=== PATIENT | male | born 1985 | race African-American/Black ===

== ENCOUNTER 2017-06-16 20:27 | Emergency (ER) | payer SELFPAY ==
[2017-06-16 21:18] LABS: #Basophils 0.1 thou/uL (0.0-0.2); #Eosinphils 0.1 thou/uL (0.0-0.7); #Lymphocytes 1.6 thou/uL (1.20-3.40); #Monocytes 1.5 thou/uL (0.11-0.59); #Neutrophils 7.1 thou/uL (1.40-6.50); %Basophils 0.9 % (0.0-1.0); %Eosinophils 0.6 % (0.0-10.0); %Lymphocytes 15.9 % (21.0-51.0); Hematocrit 37.1 % (42.0-52.0); Mean Platelet Volume 6.1 fL (7.4-10.4); Red Blood Cell (RBC) Count 3.62 mill/uL (4.70-6.10); White Blood Cell (WBC) Count 10.3 thou/uL (4.8-10.8)
[2017-06-16] MEDS ORDERED: Lorazepam 2 MG/ML VIAL ONE (21:33)
[2017-06-16 21:37] LABS: Anion Gap 19 mmol/L (10-20); BUN (Urea Nitrogen) 4 mg/dL (8.9-20.6); Calc. Creatinine Clearance 0 mL/min (70-130); Calcium 9.9 mg/dL (7.8-10.44); Carbon Dioxide 23 mmol/L (22-29); Chloride 101 mmol/L (98-107); Estimated GFR-MDRD Greater than 90
[2017-06-16 22:27] LABS: Bilirubin Negative (Negative); Blood, Urine Negative (Negative); Glucose, Urine (Dipstick) Negative (Negative); Ketone, Urine Negative (Negative); Nitrite Negative (Negative); Protein, Urine (Dipstick) Negative (Neg-Trace); Urobilinogen 0.2 mg/dL (0.2-1.0)
[2017-06-16 22:28] LABS: Amphetamine Not Detected (NotDetected); Methadone Not Detected (NotDetected); Methamphetamine Not Detected (NotDetected)
== END 2017-06-16 23:22 | disposition home or self-care (01) ==
LOC: ERS 20:27
DX: F10.129 Alcohol abuse with intoxication, unspecified (principal); F41.9 Anxiety disorder, unspecified; L02.511 Cutaneous abscess of right hand; I10 Essential (primary) hypertension
CPT/HCPCS: 36415; 80048; 80306; 80307; 81003; 85025; 96361; 96374; J2060

== ENCOUNTER 2017-07-18 01:59 | Observation (INO) | payer SELFPAY ==
[2017-07-18 03:02] LABS: #Basophils 0.1 thou/uL (0.0-0.2); #Eosinphils 0.1 thou/uL (0.0-0.7); #Lymphocytes 2.1 thou/uL (1.20-3.40); #Monocytes 0.6 thou/uL (0.11-0.59); #Neutrophils 3.1 thou/uL (1.40-6.50); %Basophils 1.1 % (0.0-1.0); %Eosinophils 1.4 % (0.0-10.0); %Neutrophils 52.6 % (42.0-75.0); Hemoglobin 13.9 g/dL (14.0-18.0); Mean Corpuscular HGB CONC 34.5 g/dL (32.0-36.0); Mean Corpuscular Hemoglobin 34.9 pg (27.0-31.0); Mean Platelet Volume 6.5 fL (7.4-10.4); Platelet Count 200 thou/uL (130-400); RBC Distribution Width 12.3 % (11.5-14.5); Red Blood Cell (RBC) Count 3.99 mill/uL (4.70-6.10)
[2017-07-18 03:08] LABS: INR-International Normal Ratio 1.3; PTT 30.4 SEC (22.9-36.1); Prothrombin Time 16.2 SEC (12.0-14.7)
[2017-07-18 03:16] LABS: Acetaminophen Less than 6.0 mcg/mL (10.0-30.0); Alcohol 367 mg/dL (Less than 10); Salicylate Less than 8.0 mg/dL (15.0-30.0)
[2017-07-18 03:18] LABS: ALT (SGPT) 45 U/L (8-55); AST (SGOT) 93 U/L (5-34); Albumin 5.1 g/dL (3.5-5.0); Alkaline Phosphatase 113 U/L (40-150); Anion Gap 18 mmol/L (10-20); BUN (Urea Nitrogen) 4 mg/dL (8.9-20.6); Bilirubin, Total 1.6 mg/dL (0.2-1.2); CK (CPK) 115 U/L (30-200); Calc. Creatinine Clearance 0 mL/min (70-130); Calcium 9.6 mg/dL (7.8-10.44); Carbon Dioxide 24 mmol/L (22-29); Chloride 99 mmol/L (98-107); Estimated GFR-MDRD Greater than 90; Globulin 2.6 g/dL (2.4-3.5); Glucose 150 mg/dL (70-105); Lipase 73 U/L (8-78); Magnesium 2.4 mg/dL (1.6-2.6); Potassium 3.6 mmol/L (3.5-5.1); Protein, Total 7.7 g/dL (6.0-8.3); Sodium 137 mmol/L (136-145)
[2017-07-18 03:25] LABS: Amphetamine Not Detected (NotDetected); Barbiturates Screen Not Detected (NotDetected); Benzodiazepine Screen Not Detected (NotDetected); Cocaine Metabolite Screen Not Detected (NotDetected); Medtox Control Line Valid? VALID (VALID); Medtox Reader # READER 1; Methadone Not Detected (NotDetected); Methamphetamine Not Detected (NotDetected); Opiate Screen Not Detected (NotDetected); Oxycodone Screen Not Detected (NotDetected); Phencyclidine (PCP) Not Detected (NotDetected); THC/Cannabinoid Screen Not Detected (NotDetected); Tricyclic Screen Not Detected (NotDetected)
--- NOTE | 2017-07-18 07:42 | CT ---
PRELIMINARY REPORT/[facility]/EMERGENCY AFTER HOURS PROCEDURE: EXAM: CT Head Without Intravenous Contrast CLINICAL HISTORY: 31 years old, male; Signs and symptoms; Other: Anxious TECHNIQUE: Axial computed tomography images of the head/brain without intravenous contrast. COMPARISON: No relevant prior studies available. FINDINGS: Brain: Mild volume loss No hemorrhage. No significant white matter disease. No edema. Ventricles: Unremarkable. No ventriculomegaly. Bones/joints: Unremarkable. No acute fracture. Soft tissues: Unremarkable. Sinuses: Unremarkable as visualized. No acute sinusitis. Mastoid air cells: Unremarkable as visualized. No mastoid effusion. IMPRESSION: No intracranial hemorrhage.Please see discussion above. Thank you for allowing us to participate in the care of your patient. Dictated and Authenticated by: Sergio Castro MD 07/18/2017 5:07 AM Central Time ([place]) FINAL REPORT BY DR. CASTELLANOS EMERGENCY AFTER HOURS STUDY CT BRAIN NONCONTRAST: HISTORY: 31-year-old male with altered mental status, nausea, and emesis. FINDINGS: There is no midline shift or any other mass effect. There is no evidence of acute intracranial hemor rhage, large cortical infarct, obstructive hydrocephalus, or extraaxial fluid collection. The calvar ium is intact. There is diffuse brain parenchymal volume loss. This report agrees with the preliminary report by Kassandra. IMPRESSION: 1) No acute intracranial findings. 2) Involutional changes of the brain, abnormal in this age group. ranjana [] POS: [facility]
[2017-07-18 07:43] VITALS: BMI 21.4
[2017-07-18] MEDS ORDERED: Sodium Chloride 0.9% 1,000 ML IV SCH (07:55)
[2017-07-18] MEDS ORDERED: Ondansetron ODT 4 MG TAB SL PRN (07:55)
[2017-07-18] MEDS ORDERED: Acetaminophen 325 MG TAB PO PRN (07:55)
[2017-07-18] MEDS ORDERED: Ondansetron HCl/PF 4 MG/2 ML Vial IVP PRN (07:55)
[2017-07-18] MEDS ORDERED: chlordiazePOXIDE HCl 25 MG CAP PO PRN (07:58)
--- NOTE | 2017-07-18 09:01 | RAD ---
CHEST 1 VIEW: HISTORY: Altered mental status. COMPARISON: None. FINDINGS: Portable upright chest demonstrates normal cardiac silhouette. Pulmonary vessels and hilum are yecenia l. No mass. No consolidation. No pneumothorax or osseous abnormalities. IMPRESSION: No acute cardiopulmonary process. POS: [facility]
[2017-07-18] MEDS ORDERED: Folic Acid 1 MG TAB PO SCH (12:00)
--- NOTE | 2017-07-18 13:28 | HP ---
REASON FOR ADMISSION: Alcohol intoxication. HISTORY OF PRESENT ILLNESS: The patient came to ER with complaints of anxiety and not being able to eat or drink. He was also found to have had alcohol levels of 367 mg per deciliter. The patient is known to drink 10-12, 16-ounce beers on a daily basis. Currently, he has no complaints of chest pain, palpitation, PND or orthopnea. He is fully awake and alert this morning. He will shortly have his breakfast. He is moving all extremities and has ambulated to the restroom in his room in 242 on the observation unit. PAST MEDICAL AND SURGICAL HISTORY: History of alcohol abuse and hypertension. CURRENT MEDICATIONS: Toprol-XL 25 mg daily. ALLERGIES: No known drug allergies. PERSONAL HISTORY: Drinks 10-12, 16-ounce cans of beer on a daily basis. Does not abuse drugs or smoke. He sometimes stays with his girlfriend. He has three children, aged 6, 8, and 12 years. He is currently unemployed. FAMILY HISTORY: Mother is healthy as far as he knows. He does not know much about his father. REVIEW OF SYSTEMS: The following complete review of systems was negative, unless otherwise mentioned in the HPI or below: Constitutional: Weight loss or gain, ability to conduct usual activities. Skin: Rash, itching. Eyes: Double vision, pain. ENT/Mouth: Nose bleeding, neck stiffness, pain, tenderness. Cardiovascular: Palpitations, dyspnea on exertion, orthopnea. Respiratory: Shortness of breath, wheezing, cough, hemoptysis, fever or night sweats. Gastrointestinal: Poor appetite, abdominal pain, heartburn, nausea, vomiting, constipation, or diarrhea. Genitourinary: Urgency, frequency, dysuria, nocturia. Musculoskeletal: Pain, swelling. Neurologic/Psychiatric: Anxiety, depression. Allergy/Immunologic: Skin rash, bleeding tendency. PHYSICAL EXAMINATION: GENERAL: The patient is a 31-year-old male who is currently not in any acute distress. VITAL SIGNS: Blood pressure 106/66, pulse 90 per minute, respiratory rate 18 per minute, temperature 97.9 degrees Fahrenheit, saturating 98% on room air. NECK: Supple, no elevated JVD. HEENT: Eyes: Extraocular muscles intact. Pupils reacting to light. Oral cavity: Mucous membranes are moist. No exudates or congestion. CARDIOVASCULAR: S1, S2 heard. Regular rhythm. RESPIRATORY: Air entry 2+ bilateral. No rales or rhonchi. ABDOMEN: Soft, bowel sounds heard. No tenderness, rigidity or guarding. EXTREMITIES: No peripheral edema or calf tenderness. VASCULAR SYSTEM: Peripheral pulses 1+ bilateral. No ischemic ulcerations or gangrene. CENTRAL NERVOUS SYSTEM: No gross focal deficits seen. The patient is currently oriented well. PSYCHIATRIC: The patient's mood is euthymic. No hallucinations or delusions. LABORATORY: White count 6, H&H 13 and 40, platelet count 200, MCV is 101 with 52% neutrophils. INR is 1.3, BUN 4, creatinine 0.6, total bilirubin 1.6, AST 93 , ALT 45, alkaline phosphatase 113. Ammonia levels was 111, albumin is 5.1. Lipase is 73. Plasma alcohol levels were 367 mg per deciliter. Urine drug screen was negative. EKG done shows normal sinus rhythm at [address] brain shows no acute intracranial abnormalities. Chest x-ray, no acute cardiopulmonary abnormalities. CLINICAL IMPRESSION AND PLAN: The patient will be shortly discharged home. He was essentially monitored under observation for alcohol intoxication. His initial serum alcohol levels were 367 mg per deciliter with history of alcohol abuse. He was counseled with regards to cessation of drinking alcohol. The patient is contemplating about stopping it. His current girlfriend of 8 months has insurance and will try to bring him onto her insurance and will try to put him in rehab for the same. He was counseled to get active in community and might find a job as well, so he can keep his mind off alcohol. He is hemodynamically stable. Neurologically, he is intact. His alcoholic intoxication phase is slowly weaning off. After his current IV fluids gets over , he can be discharged home. Please note, this is a same day admit and discharge under observation. TURNER
[2017-07-18 15:41] VITALS: BP 134/92; TEMP 99
[2017-07-19] MEDS ORDERED: Folic Acid 1 MG TAB PO SCH (09:00)
--- NOTE | 2017-07-20 17:50 | EKG ---
Test Reason : Blood Pressure : / mmHG Vent. Rate : 095 BPM Atrial Rate : 095 BPM P-R Int : 196 ms QRS Dur : 088 ms QT Int : 374 ms P-R-T Axes : 048 013 020 degrees QTc Int : 469 ms Normal sinus rhythm Normal ECG Confirmed by MARYJANE RICKS D.O. ([id number]), graphics editor RENZO LOVETT ([id number]) on 07/20/2017 5:48:23 PM Referred By: Confirmed By:MARYJANE RICKS D.O.
== END 2017-07-18 16:31 | disposition home or self-care (01) ==
LOC: ERS 01:59 → 2SW 06:05
PROVIDERS: ADMIT Internal Medicine Infectious Disease; ATTEND Internal Medicine Infectious Disease
DX: F10.129 Alcohol abuse with intoxication, unspecified (principal); F41.9 Anxiety disorder, unspecified; I10 Essential (primary) hypertension; Z79.899 Other long term (current) drug therapy; Y90.8 Blood alcohol level of 240 mg/100 ml or more
CPT/HCPCS: 70450; 71045; 80053; 80306; 80307; 82140; 82550; 83690; 83735; 85025; 85610; 85730; 93005; 96360; 96361; G0378; Q0162

== ENCOUNTER 2018-03-12 10:51 | Emergency (ER) | payer SELFPAY ==
[2018-03-12 11:35] LABS: #Basophils 0.1 thou/uL (0.0-0.2); #Eosinphils 0.1 thou/uL (0.0-0.7); #Monocytes 0.6 thou/uL (0.11-0.59); #Neutrophils 6.1 thou/uL (1.40-6.50); %Basophils 0.8 % (0.0-1.0); %Eosinophils 0.8 % (0.0-10.0); %Lymphocytes 22.4 % (21.0-51.0); %Monocytes 7.1 % (0.0-10.0); %Neutrophils 68.9 % (42.0-75.0); Hemoglobin 15.5 g/dL (14.0-18.0); Mean Corpuscular HGB CONC 33.7 g/dL (32.0-36.0); Mean Corpuscular Volume 97.8 fL (78.0-98.0); Mean Platelet Volume 6.2 fL (7.4-10.4); Platelet Count 366 thou/uL (130-400); RBC Distribution Width 12.1 % (11.5-14.5); Red Blood Cell (RBC) Count 4.69 mill/uL (4.70-6.10); White Blood Cell (WBC) Count 8.9 thou/uL (4.8-10.8)
[2018-03-12 11:56] LABS: ALT (SGPT) 45 U/L (8-55); AST (SGOT) 83 U/L (5-34); Albumin 4.4 g/dL (3.5-5.0); Alcohol 246 mg/dL (Less than 10); Alkaline Phosphatase 107 U/L (40-150); Anion Gap 17 mmol/L (10-20); BUN (Urea Nitrogen) 5 mg/dL (8.9-20.6); Bilirubin, Total 1.9 mg/dL (0.2-1.2); CK (CPK) 115 U/L (30-200); Calc. Creatinine Clearance 0 mL/min (70-130); Calcium 9.2 mg/dL (7.8-10.44); Carbon Dioxide 21 mmol/L (22-29); Chloride 97 mmol/L (98-107); Estimated GFR-MDRD Greater than 90; Globulin 2.7 g/dL (2.4-3.5); Glucose 120 mg/dL (70-105); Lipase 35 U/L (8-78); Potassium 4.3 mmol/L (3.5-5.1); Protein, Total 7.1 g/dL (6.0-8.3); Sodium 131 mmol/L (136-145)
[2018-03-12 12:01] LABS: Bilirubin Negative (Negative); Blood, Urine Negative (Negative); Clarity CLEAR (Clear); Glucose, Urine (Dipstick) Negative (Negative); Leukocyte Negative (Negative); Nitrite Negative (Negative); Protein, Urine (Dipstick) Negative (Neg-Trace); Specific Gravity, Urine 1.002 (1.002-1.036); Urobilinogen 0.2 mg/dL (0.2-1.0); pH, Urine 6.5 (5.0-9.0)
[2018-03-12] MEDS ORDERED: Mag-Al 1200 mg/1200 mg/30 ML UDCUP ONE (12:06)
[2018-03-12] MEDS ORDERED: Lidocaine Viscous Sol 2% 15 ml UD Cup ONE (12:06)
[2018-03-12 13:18] LABS: Amphetamine Not Detected (NotDetected); Barbiturates Screen Not Detected (NotDetected); Benzodiazepine Screen Not Detected (NotDetected); Cocaine Metabolite Screen Not Detected (NotDetected); Medtox Control Line Valid? VALID (VALID); Medtox Reader # READER 1; Methadone Not Detected (NotDetected); Methamphetamine Not Detected (NotDetected); Opiate Screen Not Detected (NotDetected); Oxycodone Screen Not Detected (NotDetected); Phencyclidine (PCP) Not Detected (NotDetected); THC/Cannabinoid Screen Not Detected (NotDetected); Tricyclic Screen Not Detected (NotDetected)
[2018-03-12] MEDS ORDERED: Lorazepam 2 MG/ML VIAL ONE ×2 (17:53→22:59)
[2018-03-13] MEDS ORDERED: traZODone HCl 50 MG TAB PO PRN (01:19)
[2018-03-13] MEDS ORDERED: chlordiazePOXIDE HCl 25 MG CAP PO SCH (07:00)
[2018-03-13] MEDS ORDERED: chlordiazePOXIDE HCl 25 MG CAP ONE (08:45)
== END 2018-03-12 14:35 | disposition home or self-care (01) ==
LOC: ERS 10:51
DX: R45.851 Suicidal ideations (principal); R44.0 Auditory hallucinations; F10.239 Alcohol dependence with withdrawal, unspecified; I10 Essential (primary) hypertension
CPT/HCPCS: 36415; 80053; 80306; 80307; 81003; 82550; 83690; 84443; 85025; 96361; 96374; 96376; J2060

== ENCOUNTER 2018-09-17 22:45 | Day surgery (SDC) | payer SELFPAY ==
[2018-09-17] MEDS ORDERED: Adacel (T-DAP) 0.5 ML SYRINGE ONE (22:54)
[2018-09-17] MEDS ORDERED: Ondansetron PF 4 MG/2 ML Vial ONE (23:04)
[2018-09-17] MEDS ORDERED: Fentanyl 100 MCG/2 ML VIAL ONE ×2 (23:04→23:19)
[2018-09-17 23:11] LABS: #Basophils 0.1 thou/uL (0.0-0.2); #Eosinphils 0.1 thou/uL (0.0-0.7); #Lymphocytes 1.6 thou/uL (1.20-3.40); #Monocytes 0.8 thou/uL (0.11-0.59); #Neutrophils 3.2 thou/uL (1.40-6.50); %Basophils 1.1 % (0.0-1.0); %Eosinophils 1.8 % (0.0-10.0); %Lymphocytes 27.4 % (21.0-51.0); %Monocytes 14.5 % (0.0-10.0); %Neutrophils 55.1 % (42.0-75.0); Hemoglobin 11.7 g/dL (14.0-18.0); Mean Corpuscular HGB CONC 33.1 g/dL (32.0-36.0); Mean Corpuscular Hemoglobin 33.8 pg (27.0-31.0); Mean Platelet Volume 6.8 fL (7.4-10.4); Platelet Count 216 thou/uL (130-400); RBC Distribution Width 15.2 % (11.5-14.5); Red Blood Cell (RBC) Count 3.45 mill/uL (4.70-6.10); White Blood Cell (WBC) Count 5.7 thou/uL (4.8-10.8)
--- NOTE | 2018-09-17 23:13 | RAD ---
LEFT HUMERUS TWO VIEWS: 09/17/18 HISTORY: Left arm injury. FINDINGS: No acute fracture or dislocation. Overlying brace artifact obscures detail. IMPRESSION: No acute osseous abnormalities are demonstrated. POS: [facility]
[2018-09-17 23:14] LABS: INR-International Normal Ratio 1.2; PTT 27.4 SEC (22.9-36.1); Prothrombin Time 15.3 SEC (12.0-14.7)
[2018-09-17] MEDS ORDERED: Protamine Sulfate 50 MG/5 ML VIAL ONE (23:15)
[2018-09-17] MEDS ORDERED: Heparin 5,000 UNITS/ML VIAL ONE (23:15)
[2018-09-17] MEDS ORDERED: HYDROmorphone 2 MG/ML VIAL ONE (23:19)
[2018-09-17 23:28] LABS: ALT (SGPT) 76 U/L (8-55); AST (SGOT) 134 U/L (5-34); Albumin 3.9 g/dL (3.5-5.0); Alcohol 192 mg/dL (Less than 10); Alkaline Phosphatase 196 U/L (40-150); Anion Gap 18 mmol/L (10-20); BUN (Urea Nitrogen) 8 mg/dL (8.9-20.6); Bilirubin, Total 0.8 mg/dL (0.2-1.2); Calc. Creatinine Clearance 0 mL/min (70-130); Calcium 9.2 mg/dL (7.8-10.44); Carbon Dioxide 20 mmol/L (22-29); Chloride 108 mmol/L (98-107); Estimated GFR-MDRD Greater than 90; Globulin 2.8 g/dL (2.4-3.5); Glucose 131 mg/dL (70-105); Protein, Total 6.7 g/dL (6.0-8.3); Sodium 142 mmol/L (136-145)
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
== END 2018-09-18 ==
LOC: ERS 22:45 → EEVIPCON 22:45 → SDC/OP 09-18 00:03
PROVIDERS: ATTEND Thoracic Surgery (Cardiothoracic Vascular Surgery)
PROC: 0HQCXZZ Repair Left Upper Arm Skin, External Approach (ICD-10-PCS; principal; 2018-09-18)
DX: S41.112A Laceration without foreign body of left upper arm, initial encounter (principal); Z79.899 Other long term (current) drug therapy
CPT/HCPCS: 80053; 80307; 85025; 85610; 85730; 86850; 86900; 86901; 90715; J1170; J1644; J2405; J2720; J3010

== ENCOUNTER 2018-11-17 16:28 | Emergency (ER) | payer SELFPAY ==
[2018-11-17] MEDS ORDERED: Acetaminophen 500 MG TAB ONE (17:11)
[2018-11-17] MEDS ORDERED: Ibuprofen 200 MG TAB ONE (17:11)
--- NOTE | 2018-11-17 17:19 | RAD ---
PA AND LATERAL VIEWS CHEST: Date: 11/17/18 HISTORY: Cough, fever. FINDINGS: The cardiomediastinum is normal. The lungs are well expanded and clear. The bony thorax is normal. IMPRESSION: Normal exam. POS: [facility]
== END 2018-11-17 19:17 | disposition home or self-care (01) ==
LOC: ERS 16:28
DX: J10.1 Influenza due to other identified influenza virus with other respiratory manifestations (principal); K74.60 Unspecified cirrhosis of liver; I10 Essential (primary) hypertension; Z87.891 Personal history of nicotine dependence; Z79.899 Other long term (current) drug therapy
CPT/HCPCS: 71046; 87804

== ENCOUNTER 2018-11-27 18:31 | Emergency (ER) | payer SELFPAY ==
--- NOTE | 2018-11-27 19:42 | RAD ---
EXAM: CHEST ONE VIEW HISTORY: Heart palpitations. COMPARISON: 07/18/2017 FINDINGS: The cardiac silhouette and pulmonary vasculature is within normal limits. The lungs are clear. The os seous structures are intact. IMPRESSION: No acute cardiopulmonary process.
[2018-11-27 19:54] LABS: #Basophils 0.1 thou/uL (0.0-0.2); #Eosinphils 0.1 thou/uL (0.0-0.7); #Lymphocytes 1.9 thou/uL (1.20-3.40); #Monocytes 0.3 thou/uL (0.11-0.59); #Neutrophils 3.6 thou/uL (1.40-6.50); %Basophils 1.4 % (0.0-1.0); %Eosinophils 1.1 % (0.0-10.0); %Lymphocytes 31.7 % (21.0-51.0); %Monocytes 4.4 % (0.0-10.0); %Neutrophils 61.5 % (42.0-75.0); Hemoglobin 14.5 g/dL (14.0-18.0); Mean Corpuscular HGB CONC 34.5 g/dL (32.0-36.0); Mean Corpuscular Hemoglobin 34.6 pg (27.0-31.0); Mean Platelet Volume 5.9 fL (7.4-10.4); Platelet Count 399 thou/uL (130-400); RBC Distribution Width 13.8 % (11.5-14.5); Red Blood Cell (RBC) Count 4.19 mill/uL (4.70-6.10); White Blood Cell (WBC) Count 5.9 thou/uL (4.8-10.8)
[2018-11-27 19:55] LABS: Bilirubin Negative (Negative); Blood, Urine Negative (Negative); Clarity CLEAR (Clear); Glucose, Urine (Dipstick) Negative (Negative); Leukocyte Negative (Negative); Nitrite Negative (Negative); Protein, Urine (Dipstick) Negative (Neg-Trace); Specific Gravity, Urine 1.003 (1.002-1.036); Urobilinogen 0.2 mg/dL (0.2-1.0); pH, Urine 6.5 (5.0-9.0)
[2018-11-27 20:05] LABS: Amphetamine Not Detected (NotDetected); Barbiturates Screen Not Detected (NotDetected); Benzodiazepine Screen Detected (NotDetected); Cocaine Metabolite Screen Not Detected (NotDetected); Medtox Control Line Valid? VALID (VALID); Medtox Reader # READER 4; Methadone Not Detected (NotDetected); Methamphetamine Not Detected (NotDetected); Opiate Screen Not Detected (NotDetected); Oxycodone Screen Not Detected (NotDetected); Phencyclidine (PCP) Not Detected (NotDetected); THC/Cannabinoid Screen Not Detected (NotDetected); Tricyclic Screen Not Detected (NotDetected)
[2018-11-27 20:16] LABS: ALT (SGPT) 38 U/L (8-55); AST (SGOT) 59 U/L (5-34); Acetaminophen Less than 6.0 mcg/mL (10.0-30.0); Albumin 5.1 g/dL (3.5-5.0); Alkaline Phosphatase 154 U/L (40-150); Anion Gap 20 mmol/L (10-20); BUN (Urea Nitrogen) Less than 4 mg/dL (8.9-20.6); Bilirubin, Total 1.2 mg/dL (0.2-1.2); Calc. Creatinine Clearance 0 mL/min (70-130); Calcium 9.7 mg/dL (7.8-10.44); Carbon Dioxide 23 mmol/L (22-29); Chloride 92 mmol/L (98-107); Estimated GFR-MDRD Greater than 90; Globulin 2.9 g/dL (2.4-3.5); Glucose 117 mg/dL (70-105); Potassium 4.1 mmol/L (3.5-5.1); Salicylate Less than 8.0 mg/dL (15.0-30.0); Sodium 131 mmol/L (136-145)
[2018-11-27 20:20] LABS: Alcohol 404 mg/dL (Less than 10)
--- NOTE | 2018-11-29 12:07 | EKG ---
Test Reason : Blood Pressure : / mmHG Vent. Rate : 117 BPM Atrial Rate : 117 BPM P-R Int : 172 ms QRS Dur : 080 ms QT Int : 334 ms P-R-T Axes : 071 019 048 degrees QTc Int : 465 ms Sinus tachycardia Anteroseptal infarct , age undetermined Abnormal ECG Confirmed by LAI VICKERS M.D. ([id number]), editor managing director PHYLLIS HICKEY ([id number]) on 11/29/2018 12:07:10 PM Referred By: Confirmed By:LAI VICKERS M.D.
== END 2018-11-27 21:37 | disposition home or self-care (01) ==
LOC: ERS 18:31
DX: R00.2 Palpitations (principal); F10.129 Alcohol abuse with intoxication, unspecified; F41.9 Anxiety disorder, unspecified; F17.210 Nicotine dependence, cigarettes, uncomplicated; I10 Essential (primary) hypertension; Z79.899 Other long term (current) drug therapy
CPT/HCPCS: 71045; 80053; 80306; 80307; 81003; 83690; 84443; 84484; 85025; 85379; 93005; 96360

== ENCOUNTER 2018-11-29 10:31 | Emergency (ER) | payer SELFPAY ==
[2018-11-29 11:24] LABS: #Basophils 0.1 thou/uL (0.0-0.2); #Lymphocytes 1.3 thou/uL (1.20-3.40); #Monocytes 0.5 thou/uL (0.11-0.59); #Neutrophils 5.9 thou/uL (1.40-6.50); %Basophils 1.1 % (0.0-1.0); %Eosinophils 0.5 % (0.0-10.0); %Monocytes 6.6 % (0.0-10.0); %Neutrophils 74.9 % (42.0-75.0); Hemoglobin 14.5 g/dL (14.0-18.0); Mean Corpuscular HGB CONC 33.7 g/dL (32.0-36.0); Mean Corpuscular Hemoglobin 34.4 pg (27.0-31.0); Platelet Count 326 thou/uL (130-400); RBC Distribution Width 13.7 % (11.5-14.5); Red Blood Cell (RBC) Count 4.22 mill/uL (4.70-6.10); White Blood Cell (WBC) Count 7.8 thou/uL (4.8-10.8)
[2018-11-29] MEDS ORDERED: chlordiazePOXIDE HCl 25 MG CAP PO SCH (11:30)
[2018-11-29 11:45] LABS: ALT (SGPT) 49 U/L (8-55); AST (SGOT) 119 U/L (5-34); Albumin 5.2 g/dL (3.5-5.0); Alkaline Phosphatase 170 U/L (40-150); Anion Gap 23 mmol/L (10-20); BUN (Urea Nitrogen) Less than 4 mg/dL (8.9-20.6); Bilirubin, Total 1.3 mg/dL (0.2-1.2); Calc. Creatinine Clearance 0 mL/min (70-130); Calcium 10.1 mg/dL (7.8-10.44); Carbon Dioxide 20 mmol/L (22-29); Chloride 91 mmol/L (98-107); Estimated GFR-MDRD Greater than 90; Glucose 99 mg/dL (70-105); Lipase 68 U/L (8-78); Potassium 4.9 mmol/L (3.5-5.1); Protein, Total 8.2 g/dL (6.0-8.3)
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
[2018-11-29 11:56] LABS: Sodium 129 mmol/L (136-145)
[2018-11-29] MEDS ORDERED: chlordiazePOXIDE HCl 25 MG CAP ONE (12:04)
[2018-11-29] MEDS ORDERED: Thiamine 100 MG TAB ONE (12:05)
[2018-11-29] MEDS ORDERED: Folic Acid 1 MG TAB ONE (12:05)
[2018-11-29 12:52] LABS: Acetaminophen Less than 6.0 mcg/mL (10.0-30.0); Alcohol 142 mg/dL (Less than 10); Salicylate Less than 8.0 mg/dL (15.0-30.0)
== END 2018-11-29 14:20 | disposition home or self-care (01) ==
LOC: ERS 10:31
DX: S02.81XA Fracture of other specified skull and facial bones, right side, initial encounter for closed fracture (principal); I10 Essential (primary) hypertension; F41.9 Anxiety disorder, unspecified; F17.210 Nicotine dependence, cigarettes, uncomplicated; Z79.899 Other long term (current) drug therapy; X58.XXXA Exposure to other specified factors, initial encounter
CPT/HCPCS: 36415; 70486; 80053; 80307; 83690; 83930; 85025

== ENCOUNTER 2019-02-28 18:18 | Inpatient (IN) | payer SELFPAY ==
[2019-02-28 18:42] LABS: #Basophils 0.1 thou/uL (0.0-0.2); #Eosinphils 0.1 thou/uL (0.0-0.7); #Lymphocytes 1.1 thou/uL (1.20-3.40); #Monocytes 0.4 thou/uL (0.11-0.59); #Neutrophils 2.6 thou/uL (1.40-6.50); %Basophils 2.4 % (0.0-1.0); %Eosinophils 2.2 % (0.0-10.0); %Lymphocytes 25.1 % (21.0-51.0); %Neutrophils 60.2 % (42.0-75.0); Hemoglobin 12.6 g/dL (14.0-18.0); Mean Corpuscular HGB CONC 35.9 g/dL (32.0-36.0); Mean Corpuscular Hemoglobin 35.2 pg (27.0-31.0); Mean Corpuscular Volume 98.2 fL (78.0-98.0); Platelet Count 167 thou/uL (130-400); RBC Distribution Width 12.6 % (11.5-14.5); Red Blood Cell (RBC) Count 3.58 mill/uL (4.70-6.10); White Blood Cell (WBC) Count 4.3 thou/uL (4.8-10.8)
[2019-02-28 18:45] LABS: Acetaminophen Less than 6.0 mcg/mL (10.0-30.0); Salicylate Less than 8.0 mg/dL (15.0-30.0)
[2019-02-28 18:48] LABS: ALT (SGPT) 103 U/L (8-55); AST (SGOT) 206 U/L (5-34); Albumin 5.1 g/dL (3.5-5.0); Alkaline Phosphatase 132 U/L (40-150); Anion Gap 16 mmol/L (10-20); BUN (Urea Nitrogen) 5 mg/dL (8.9-20.6); Bilirubin, Total 1.5 mg/dL (0.2-1.2); CK (CPK) 224 U/L (30-200); Calc. Creatinine Clearance 0 mL/min (70-130); Calcium 9.5 mg/dL (7.8-10.44); Carbon Dioxide 23 mmol/L (22-29); Chloride 90 mmol/L (98-107); Estimated GFR-MDRD Greater than 90; Globulin 2.5 g/dL (2.4-3.5); Glucose 171 mg/dL (70-105); Protein, Total 7.6 g/dL (6.0-8.3); Sodium 125 mmol/L (136-145)
--- NOTE | 2019-02-28 19:13 | CT ---
EXAM: CT brain without contrast HISTORY: Altered mental status and unresponsive. History of seizures. COMPARISON: 07/18/2017 TECHNIQUE: Multiple contiguous axial images were obtained and a CT of the brain without contrast. FINDINGS: There is a stable subtle hypodensity in the left frontal subcortical white matter. The brai n is otherwise normal in morphology and attenuation without focal lesions or confluent areas of infarction. There is no evidence of hydrocephalus, intracranial hemorrhage, or extra-axial fluid nahomi ection. There is moderate left periorbital soft tissue swelling.. The visualized paranasal sinuses and mastoi d air cells are well aerated. IMPRESSION: No evidence of acute intracranial abnormality
[2019-02-28 19:16] LABS: Alcohol 511 mg/dL (Less than 10)
[2019-02-28] MEDS ORDERED: Multivitamins, Adult 10 ML, Thiamine HCl 100 MG, Folic Acid 1 MG in Dextrose 5 %-0.45 %... IV SCH (20:00)
[2019-02-28 20:15] LABS: Bilirubin Negative (Negative); Blood, Urine Negative (Negative); Clarity Clear (Clear); Glucose, Urine (Dipstick) Normal (Negative); Leukocyte Negative Leu/uL (Negative); Nitrite Negative (Negative); Protein, Urine (Dipstick) Negative (Neg-Trace); Urobilinogen Normal mg/dL (Less than 2)
[2019-02-28 20:25] LABS: Medtox Reader # READER 4; Phencyclidine (PCP) Not Detected (NotDetected); THC/Cannabinoid Screen Not Detected (NotDetected)
[2019-02-28 20:26] LABS: Amphetamine Not Detected (NotDetected); Barbiturates Screen Not Detected (NotDetected); Benzodiazepine Screen Detected (NotDetected); Cocaine Metabolite Screen Not Detected (NotDetected); Medtox Control Line Valid? VALID (VALID); Methadone Not Detected (NotDetected); Methamphetamine Not Detected (NotDetected); Opiate Screen Not Detected (NotDetected); Oxycodone Screen Not Detected (NotDetected); Tricyclic Screen Not Detected (NotDetected)
[2019-02-28] MEDS ORDERED: Diazepam 5 MG TAB PO SCH (22:15)
[2019-02-28] MEDS ORDERED: Folic Acid 1 MG TAB PO SCH (22:15)
[2019-02-28] MEDS ORDERED: Thiamine 100 MG TAB PO SCH (22:15)
[2019-02-28] MEDS: Sodium Chloride 0.9% 1,000 ML IV SCH (22:48)
[2019-03-01 00:28] VITALS: BMI 21.9
[2019-03-01] MEDS: Sodium Chloride 0.9% 1,000 ML IV SCH ×4 (03:56→23:53)
[2019-03-01] MEDS: Thiamine 100 MG TAB PO SCH (09:31)
[2019-03-01] MEDS: chlordiazePOXIDE HCl 25 MG CAP PO SCH ×3 (09:31→20:53)
[2019-03-01] MEDS: Multivitamin W/ Minerals 1 TAB PO SCH (09:31)
[2019-03-01] MEDS: Diazepam 5 MG TAB PO PRN ×4 (09:32→23:50)
[2019-03-01] MEDS: Folic Acid 1 MG TAB PO SCH (09:32)
--- NOTE | 2019-03-01 15:10 | RAD ---
EXAM: XR Clavicle Lt 2 V STANDARD PROVIDED CLINICAL HISTORY: Pain status post injury COMPARISON: None FINDINGS: There is a displaced fracture of the distal left clavicle, probably distal to the coracoclavicular li gaments. No displacement of the acromion with respect to the clavicle is evident. No additional fracture is seen. IMPRESSION: Distal left clavicular fracture.
[2019-03-01] MEDS: Acetaminophen 325 MG TAB PO PRN (18:21)
[2019-03-01] MEDS ORDERED: Lorazepam 2 MG/ML VIAL SLOW IVP PRN (23:40)
[2019-03-02] MEDS: Diazepam 5 MG TAB PO PRN (05:31)
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
[2019-03-02] MEDS: Folic Acid 1 MG TAB PO SCH (09:09)
[2019-03-02] MEDS: Multivitamin W/ Minerals 1 TAB PO SCH (09:09)
[2019-03-02] MEDS: Thiamine 100 MG TAB PO SCH (09:09)
[2019-03-02] MEDS: chlordiazePOXIDE HCl 25 MG CAP PO SCH (09:09)
[2019-03-02] MEDS: Acetaminophen 325 MG TAB PO PRN (09:20)
[2019-03-02 12:12] VITALS: BP 131/96; TEMP 98.3
== END 2019-03-02 15:35 | disposition home or self-care (01) | DRG 897 ==
LOC: ERS 18:18 → 2NO 21:17
PROVIDERS: ADMIT Hospitalist; ATTEND Hospitalist
DX: F10.129 Alcohol abuse with intoxication, unspecified (principal); E87.1 Hypo-osmolality and hyponatremia; I10 Essential (primary) hypertension; F12.90 Cannabis use, unspecified, uncomplicated; Y90.8 Blood alcohol level of 240 mg/100 ml or more; R79.89 Other specified abnormal findings of blood chemistry; D53.9 Nutritional anemia, unspecified; D72.819 Decreased white blood cell count, unspecified; Z79.899 Other long term (current) drug therapy
CPT/HCPCS: 36415; 70450; 80053; 80306; 80307; 81003; 82550; 83735; 85025; 93005; 96361; 96365; J3411; J7042

== ENCOUNTER 2019-03-23 15:36 | Inpatient (IN) | payer SELFPAY ==
[2019-03-23] MEDS ORDERED: Diazepam 10 MG/2 ML SYRINGE ONE (16:16)
[2019-03-23] MEDS ORDERED: cefTRIAXone\\ROCEPHIN 1 GM VIAL ONE (16:16)
[2019-03-23 16:17] LABS: #Basophils 0.1 thou/uL (0.0-0.2); #Lymphocytes 0.9 thou/uL (1.20-3.40); #Monocytes 0.4 thou/uL (0.11-0.59); %Basophils 1.6 % (0.0-1.0); %Eosinophils 0.7 % (0.0-10.0); %Lymphocytes 19.6 % (21.0-51.0); %Monocytes 8.9 % (0.0-10.0); %Neutrophils 69.3 % (42.0-75.0); Hemoglobin 11.8 g/dL (14.0-18.0); Mean Corpuscular Hemoglobin 35.4 pg (27.0-31.0); Mean Platelet Volume 7.7 fL (7.4-10.4); Platelet Count 163 thou/uL (130-400); RBC Distribution Width 12.7 % (11.5-14.5); Red Blood Cell (RBC) Count 3.35 mill/uL (4.70-6.10); White Blood Cell (WBC) Count 4.3 thou/uL (4.8-10.8)
[2019-03-23] MEDS ORDERED: Octreotide Acetate 50 MCG/ML AMP ONE (16:17)
[2019-03-23] MEDS ORDERED: Pantoprazole 40 MG VIAL ONE (16:17)
[2019-03-23 16:20] LABS: Base Excess-Venous 0.7 mmol/L (-2.0 to 3.0); Bicarbonate (HCO3v) 24.6 mmol/L (22.0-28.0); CO2 Tension (PvCO2) 36.3 mmHg (40.0-50.0); Calcium, Ionized 0.97 mmol/L (See Comments:); Chloride 102 mmol/L (98-107); Hemoglobin - Calc 15.4 g/dL (14.0-18.0); Potassium 4.4 mmol/L (3.5-5.1); Sodium 132 mmol/L (138-145); T. Carbon Dioxide 25.7 mmol/L (22.0-28.0); vO2 Saturation-calc 96.7 % (60.0-85.0)
[2019-03-23 16:25] LABS: INR-International Normal Ratio 1.2; Prothrombin Time 14.7 SEC (12.0-14.7)
[2019-03-23 16:40] LABS: ALT (SGPT) 82 U/L (8-55); AST (SGOT) 223 U/L (5-34); Acetaminophen Less than 6.0 mcg/mL (10.0-30.0); Albumin 5.4 g/dL (3.5-5.0); Alcohol 387 mg/dL (Less than 10); Alkaline Phosphatase 172 U/L (40-110); Anion Gap 22 mmol/L (10-20); BUN (Urea Nitrogen) 4 mg/dL (8.9-20.6); Bilirubin, Total 1.5 mg/dL (0.2-1.2); Calc. Creatinine Clearance 0 mL/min (70-130); Carbon Dioxide 22 mmol/L (22-29); Chloride 92 mmol/L (98-107); Estimated GFR-MDRD Greater than 90; Globulin 3.1 g/dL (2.4-3.5); Glucose 118 mg/dL (70-105); Magnesium 1.9 mg/dL (1.6-2.6); Potassium 4.4 mmol/L (3.5-5.1); Protein, Total 8.5 g/dL (6.0-8.3); Salicylate Less than 8.0 mg/dL (15.0-30.0); Sodium 132 mmol/L (136-145)
[2019-03-23] MEDS ORDERED: Octreotide Acetate 1,250 MCG in Sodium Chloride 0.9% 250 ML 250 ML IVPB SCH (16:45)
[2019-03-23] MEDS ORDERED: Ondansetron PF 4 MG/2 ML Vial ONE (17:25)
[2019-03-23 18:03] LABS: Bilirubin Negative (Negative); Blood, Urine Negative (Negative); Clarity Clear (Clear); Glucose, Urine (Dipstick) Normal (Negative); Leukocyte Negative Leu/uL (Negative); Nitrite Negative (Negative); Protein, Urine (Dipstick) 10 mg/dL (Neg-Trace); Urobilinogen Normal mg/dL (Less than 2)
[2019-03-23 20:24] VITALS: BMI 20.5
[2019-03-23 20:26] LABS: Lactic Acid 3.8 mmol/L (0.5-2.2)
[2019-03-24] MEDS ORDERED: Diazepam 5 MG TAB PO SCH ×2 (01:00→16:30)
[2019-03-24] MEDS: Sodium Chloride 0.9% 1,000 ML IV SCH ×4 (01:34→20:16)
[2019-03-24] MEDS ORDERED: Pantoprazole 80 MG in Sodium Chloride 0.9% 100 ML IVP SCH (04:15)
[2019-03-24] MEDS ORDERED: Octreotide Acetate 1,250 MCG in Sodium Chloride 0.9% 250 ML 250 ML IVPB SCH (04:15)
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
[2019-03-24 06:15] LABS: Hemoglobin 13.4 g/dL (14.0-18.0)
[2019-03-24] MEDS: Multivitamins, Adult 10 ML, Folic Acid 1 MG, Thiamine HCl 100 MG in Dextrose 5 %-0.45 %... IV SCH (06:20)
[2019-03-24] MEDS: Lorazepam 2 MG/ML VIAL SLOW IVP PRN ×2 (06:24→11:36)
--- NOTE | 2019-03-24 08:26 | RAD ---
TWO VIEWS LEFT CLAVICLE: COMPARISON: 03/01/2019. HISTORY: Clavicle fracture. Evaluate for healing. FINDINGS: Two views left clavicle show a fracture of the distal left clavicle. A small amount of surrounding c allus is seen suggesting healing. IMPRESSION: Healing distal clavicle fracture. POS: [facility]
[2019-03-24 12:19] LABS: Hemoglobin 12.4 g/dL (14.0-18.0)
[2019-03-24] MEDS ORDERED: Diazepam 5 MG TAB PO PRN (15:21)
--- NOTE | 2019-03-24 16:20 | PDOC.HOSPP ---
- Subjective Encounter Date: 03/24/19 Encounter Time: 12:00 Subjective: no abd pain or nausea now is awake but shaking no chest pain or palp says he only threw up little blood with retching/vomiting admits to drinking 12 pack beer daily - Objective Vital Signs & Weight: Vital Signs (12 hours) Temp Pulse Resp BP Pulse Ox 03/24/19 11:15 99.3 F 95 18 140/91 H 98 03/24/19 07:25 98.8 F 88 18 136/89 98 Weight Weight 120 lb I&O: 03/23/19 03/24/19 03/25/19 06:59 06:59 06:59 Intake Total 1060 Output Total 1400 Balance -340 Result Diagrams: 03/24/19 12:10 03/23/19 16:05 Hospitalist ROS - Medication Medications: Active Medications Generic Name Dose Route Start Last Admin Trade Name Freq PRN Reason Stop Dose Admin Multivitamins 10 ml/ Folic 1,011.2 mls @ 100 mls/hr 03/24/19 05:00 03/24/19 06:20 Acid 1 mg/ Thiamine HCl 100 mg IV 1,011.2 mls / Dextrose/Sodium Chloride Q24HR GINI Administration - Exam General Appearance: awake alert Eye: PERRL, anicteric sclera ENT: no oropharyngeal lesions, moist mucosa Neck: supple, no JVD Heart: RRR, no murmur Respiratory: no wheezes, no rales Gastrointestinal: soft, non-tender, non-distended, normal bowel sounds Extremities: no cyanosis, no edema Skin: normal turgor, no rashes Neurological: cranial nerve grossly intact, no focal deficits Musculoskeletal: normal tone, no muscle wasting Hosp A/P (1) Alcoholic hepatitis Code(s): K70.10 - ALCOHOLIC HEPATITIS WITHOUT ASCITES Status: Acute Qualifiers: Ascites presence: without ascites Qualified Code(s): K70.10 - Alcoholic hepatitis without ascites (2) Alcohol withdrawal Code(s): F10.239 - ALCOHOL DEPENDENCE WITH WITHDRAWAL, UNSPECIFIED Status: Acute (3) Alcohol abuse Code(s): F10.10 - ALCOHOL ABUSE, UNCOMPLICATED Status: Chronic (4) Hematemesis Code(s): K92.0 - HEMATEMESIS Status: Acute Qualifiers: Nausea presence: with nausea Qualified Code(s): K92.0 - Hematemesis (5) Elevated LFTs Code(s): R79.89 - OTHER SPECIFIED ABNORMAL FINDINGS OF BLOOD CHEMISTRY Status : Acute - Plan is on banana bag serial h/h is stable, no active bleeding now has h/o of chronic alc abuse is currently on protonix drip and octreotide drips GI consultation may tx to med floor librium tid, ativan prn correct electrolytes hyponatremia sec to alc abuse
[2019-03-24] MEDS: Lorazepam 1 MG TAB PO PRN (20:23)
[2019-03-24 21:22] LABS: Hemoglobin 12.5 g/dL (14.0-18.0)
[2019-03-25] MEDS: Sodium Chloride 0.9% 1,000 ML IV SCH ×3 (03:00→21:21)
[2019-03-25] MEDS: Multivitamins, Adult 10 ML, Folic Acid 1 MG, Thiamine HCl 100 MG in Dextrose 5 %-0.45 %... IV SCH (04:46)
[2019-03-25] MEDS: Lorazepam 1 MG TAB PO PRN (04:55)
[2019-03-25 05:57] LABS: Anion Gap 12 mmol/L (10-20); BUN (Urea Nitrogen) Less than 4 mg/dL (8.9-20.6); Calc. Creatinine Clearance 107 mL/min (70-130); Calcium 8.8 mg/dL (7.8-10.44); Carbon Dioxide 25 mmol/L (22-29); Chloride 103 mmol/L (98-107); Estimated GFR-MDRD Greater than 90; Glucose 125 mg/dL (70-105); Magnesium 1.6 mg/dL (1.6-2.6); Potassium 3.6 mmol/L (3.5-5.1); Sodium 136 mmol/L (136-145)
[2019-03-25 06:01] LABS: #Basophils 0.1 thou/uL (0.0-0.2); #Eosinphils 0.2 thou/uL (0.0-0.7); #Lymphocytes 1.2 thou/uL (1.20-3.40); #Monocytes 0.5 thou/uL (0.11-0.59); #Neutrophils 2.2 thou/uL (1.40-6.50); %Basophils 1.7 % (0.0-1.0); %Eosinophils 3.8 % (0.0-10.0); %Monocytes 12.5 % (0.0-10.0); Hemoglobin 11.8 g/dL (14.0-18.0); Mean Corpuscular HGB CONC 33.5 g/dL (32.0-36.0); Mean Corpuscular Hemoglobin 34.6 pg (27.0-31.0); Mean Platelet Volume 6.7 fL (7.4-10.4); Platelet Count 115 thou/uL (130-400); Platelet Morphology Comment Appears Decreased; RBC Distribution Width 12.3 % (11.5-14.5); White Blood Cell (WBC) Count 4.1 thou/uL (4.8-10.8)
[2019-03-25 06:12] LABS: ALT (SGPT) 49 U/L (8-55); AST (SGOT) 95 U/L (5-34); Albumin 4.2 g/dL (3.5-5.0); Alkaline Phosphatase 124 U/L (40-110); Bilirubin, Direct 0.9 mg/dL (0.1-0.3); Bilirubin, Total 2.1 mg/dL (0.2-1.2); Phosphorus 2.9 mg/dL (2.3-4.7); Protein, Total 6.3 g/dL (6.0-8.3)
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
[2019-03-25] MEDS ORDERED: Pantoprazole 40 MG VIAL IVP SCH (09:00)
--- NOTE | 2019-03-25 13:34 | PRG ---
DATE OF SERVICE: 03/25/2019 SUBJECTIVE: Mr. Mcneil says he is feeling better. He is feeling less shaky. He denies any abdominal pain. He denies any nausea. He has not had any further emesis since arrival. LFTs have improved. He did receive Ativan overnight for withdrawal symptoms. OBJECTIVE: VITAL SIGNS: Temperature 98.0, pulse 68, blood pressure 127/84, and 97% oxygen saturation on room air. GENERAL: No acute distress. HEART: Regular rate and rhythm. LUNGS: Clear to auscultation bilaterally. ABDOMEN: Soft, nontender to palpation. EXTREMITIES: No peripheral edema. LABORATORY STUDIES: WBC 4.1, hemoglobin stable at 11.8, platelets 115. INR 1.2. Sodium 136, potassium 3.6, BUN less than 4, creatinine 0.77, glucose 125, total bilirubin 2.1, direct bilirubin 0.9, alkaline phosphatase down to 124, AST down to 95, ALT down to 49, ammonia only 43. ASSESSMENT AND PLAN: 1. Hematemesis, mild, single episode, resolved. 2. Alcoholic liver disease. 3. Alcohol withdrawal. The patient has had no further evidence of any gastrointestinal bleeding. Hemoglobin remained stable. I agree there is no need for upper endoscopy at this time. His transaminases have improved a bit overnight. I had a long discussion with the patient about his continued drinking and that he really needs to stop completely, he says that is the plan. 4. Nothing further from a GI perspective at this time. Once the patient is cleared from an alcohol withdrawal perspective, no barriers to discharge from the GI perspective. 5. GI will sign off. Please call back with any questions or concerns. Job ID: [id number]
--- NOTE | 2019-03-25 14:21 | PDOC.HOSPP ---
- Subjective Encounter Date: 03/25/19 Encounter Time: 09:00 Subjective: awake, no abd pain or nausea wants to eat solid food - Objective Vital Signs & Weight: Vital Signs (12 hours) Temp Pulse Resp BP Pulse Ox 03/25/19 12:00 98.0 F 68 17 127/84 97 03/25/19 08:00 97 03/25/19 06:58 98 F 68 18 127/84 97 03/25/19 04:00 98.2 F 70 16 133/82 100 Weight Weight 120 lb I&O: 03/24/19 03/25/19 03/26/19 06:59 06:59 06:59 Intake Total 1060 3410 Output Total 1400 2425 Balance -340 985 Result Diagrams: 03/25/19 05:25 03/25/19 05:25 Hospitalist ROS - Medication Medications: Active Medications Generic Name Dose Route Start Last Admin Trade Name Freq PRN Reason Stop Dose Admin Multivitamins 10 ml/ Folic 1,011.2 mls @ 100 mls/hr 03/24/19 05:00 03/25/19 04:46 Acid 1 mg/ Thiamine HCl 100 mg IV 1,011.2 mls / Dextrose/Sodium Chloride Q24HR GINI Administration Sodium Chloride 1,000 mls @ 150 mls/hr 03/24/19 15:34 03/25/19 03:00 Normal Saline 0.9% IV 1,000 mls .Q6H40M GINI Administration Lorazepam 2 mg 03/24/19 15:20 03/25/19 04:55 Ativan PO 2 mg Q4H PRN Administration Anxiety/Agitation Pantoprazole Sodium 40 mg 03/25/19 09:00 03/25/19 08:15 Protonix IVP 40 mg DAILY GINI Administration - Exam General Appearance: awake alert Eye: PERRL, anicteric sclera ENT: no oropharyngeal lesions, moist mucosa Neck: supple, no JVD Heart: RRR, no murmur Respiratory: no wheezes, no rales Gastrointestinal: soft, non-tender, non-distended, normal bowel sounds Extremities: no cyanosis, no edema Neurological: cranial nerve grossly intact, no focal deficits Psychiatric: normal affect, A&O x 3 Hosp A/P (1) Alcoholic hepatitis Code(s): K70.10 - ALCOHOLIC HEPATITIS WITHOUT ASCITES Status: Acute Qualifiers: Ascites presence: without ascites Qualified Code(s): K70.10 - Alcoholic hepatitis without ascites (2) Alcohol withdrawal Code(s): F10.239 - ALCOHOL DEPENDENCE WITH WITHDRAWAL, UNSPECIFIED Status: Acute (3) Alcohol abuse Code(s): F10.10 - ALCOHOL ABUSE, UNCOMPLICATED Status: Chronic (4) Hematemesis Code(s): K92.0 - HEMATEMESIS Status: Resolved Qualifiers: Nausea presence: with nausea Qualified Code(s): K92.0 - Hematemesis (5) Elevated LFTs Code(s): R79.89 - OTHER SPECIFIED ABNORMAL FINDINGS OF BLOOD CHEMISTRY Status : Acute - Plan is on banana bag serial h/h is stable, no active bleeding now has h/o of chronic alc abuse oral protonix librium tid, ativan prn dc plan in am oral solid diet from this evening
[2019-03-26] MEDS: Sodium Chloride 0.9% 1,000 ML IV SCH ×2 (00:03→06:19)
[2019-03-26] MEDS: Multivitamins, Adult 10 ML, Folic Acid 1 MG, Thiamine HCl 100 MG in Dextrose 5 %-0.45 %... IV SCH (04:16)
[2019-03-26 07:11] VITALS: TEMP 98.9
[2019-03-26] MEDS ORDERED: Folic Acid 1 MG TAB PO SCH (09:00)
[2019-03-26] MEDS ORDERED: Thiamine 100 MG TAB PO SCH (09:00)
[2019-03-26 11:22] VITALS: BP 137/94
--- NOTE | 2019-03-26 19:54 | DIS ---
DATE OF ADMISSION: 03/23/2019 DATE OF DISCHARGE: 03/26/2019 DISCHARGE DISPOSITION: Home. PRIMARY DISCHARGE DIAGNOSES: Alcohol abuse with withdrawal, alcoholic hepatitis, hematemesis resolved likely due to frequent retching, elevated LFTs due to alcoholic hepatitis resolving. PROCEDURES DONE DURING HOSPITALIZATION: X-ray of the left clavicle two-view done shows healing distal clavicle fracture. Hemoglobin and hematocrit of 11.8 and 35, platelet count is 115. MCV is 103. PT/INR 14 and 1.2. Discharge AST 95, discharge ALT 49, discharge alkaline phosphatase 124, total bilirubin on the day of discharge 2.1. Ammonia level is 43. Admitting total bilirubin was 1.5, admitting AST 223, admitting ALT 82. Admitting alkaline phosphatase 172. Plasma alcohol levels on the day of admission were 387 mg/dL. DISCHARGE MEDICATIONS: 1. Vitamin C 500 mg p.o. daily. 2. Thiamine 100 mg p.o. daily. 3. Folic acid 1 mg p.o. daily. 4. Protonix 40 mg p.o. daily. 5. Multivitamin one tablet once daily. ALLERGIES: NO KNOWN DRUG ALLERGIES. INPATIENT CONSULT: Dr. Benoit/Dr. Gerard San for Gastroenterology. DISCHARGE PLAN: The patient to follow up with his primary care physician in 1 week BRIEF COURSE DURING HOSPITALIZATION: The patient initially came to ER with complaints of vomiting blood. He also had intractable vomiting and retching. His initial plasma alcohol levels were more than 380. He has known history of chronic alcoholism. In view of this history, the patient was admitted to telemetry. He was placed on octreotide and Protonix drips. He has had serial hemoglobin and hematocrit done, which have remained stable. He has had consultation with Dr. Kerns and Dr. Gerard San for Gastroenterology. The patient also had elevated LFTs due to alcoholic hepatitis. He is known to drink more than 12 beers a day. He has had prior hospitalization here for alcohol abuse with withdrawal. He is slowly weaned into solid food and is tolerating it well. His intractable nausea and vomiting have resolved. The patient promises to not alcohol again. He is willing to go to AA meetings. He is advised to follow up with his primary care physician in the next 2 days either this evening or tomorrow to see if he can be placed on alcohol abuse medications/Antabuse. He is ambulating and eating well prior to discharge. Please note, I have seen and examined the patient on the day of discharge. Job ID: [id number]
== END 2019-03-26 16:01 | disposition home or self-care (01) | DRG 433 ==
LOC: ERS 15:36 → ERHOLD 17:59 → 2NO 19:54 → T4-B 03-24 19:34
PROVIDERS: ADMIT Family Medicine; ATTEND Family Medicine
DX: K70.10 Alcoholic hepatitis without ascites (principal); F10.230 Alcohol dependence with withdrawal, uncomplicated; K92.0 Hematemesis; R44.3 Hallucinations, unspecified; E87.1 Hypo-osmolality and hyponatremia; E87.2 Acidosis; I10 Essential (primary) hypertension; K74.60 Unspecified cirrhosis of liver; F17.290 Nicotine dependence, other tobacco product, uncomplicated; F12.10 Cannabis abuse, uncomplicated; F41.9 Anxiety disorder, unspecified; D72.819 Decreased white blood cell count, unspecified
CPT/HCPCS: 36415; 80048; 80053; 80076; 80307; 81003; 82140; 82330; 82803; 83605; 83690; 83735; 84100; 85014; 85018; 85025; 85610; 86850; 86900; 86901; 96365; 96366; 96367; 96375; 96376; C9113; J0696; J2060; J2354; J2405; J3360; J3411; J3490; J7042; J7050

== ENCOUNTER 2019-05-18 18:43 | Emergency (ER) | payer SELFPAY ==
[2019-05-18 20:09] LABS: #Basophils 0.1 thou/uL (0.0-0.2); #Eosinphils 0.3 thou/uL (0.0-0.7); #Lymphocytes 2.6 thou/uL (1.20-3.40); #Monocytes 0.5 thou/uL (0.11-0.59); %Basophils 1.7 % (0.0-1.0); %Eosinophils 4.9 % (0.0-10.0); %Lymphocytes 39.9 % (21.0-51.0); %Neutrophils 45.6 % (42.0-75.0); Hemoglobin 12.7 g/dL (14.0-18.0); Mean Corpuscular HGB CONC 34.7 g/dL (32.0-36.0); Mean Corpuscular Hemoglobin 34.3 pg (27.0-31.0); Mean Corpuscular Volume 98.7 fL (78.0-98.0); Mean Platelet Volume 5.8 fL (7.4-10.4); Platelet Count 445 thou/uL (130-400); RBC Distribution Width 12.7 % (11.5-14.5); Red Blood Cell (RBC) Count 3.69 mill/uL (4.70-6.10); White Blood Cell (WBC) Count 6.6 thou/uL (4.8-10.8)
[2019-05-18] MEDS ORDERED: Multivitamins, Adult 10 ML, Thiamine HCl 100 MG, Folic Acid 1 MG in Dextrose 5 %-0.45 %... IV ONE (20:15)
[2019-05-18 20:30] LABS: Acetaminophen Less than 6.0 mcg/mL (10.0-30.0); Lipase 116 U/L (8-78); Salicylate Less than 8.0 mg/dL (15.0-30.0)
[2019-05-18 20:31] LABS: ALT (SGPT) 44 U/L (8-55); AST (SGOT) 48 U/L (5-34); Albumin 4.5 g/dL (3.5-5.0); Alkaline Phosphatase 127 U/L (40-110); Anion Gap 17 mmol/L (10-20); BUN (Urea Nitrogen) 4 mg/dL (8.9-20.6); Bilirubin, Total 0.6 mg/dL (0.2-1.2); CK (CPK) 125 U/L (30-200); Calc. Creatinine Clearance 0 mL/min (70-130); Calcium 9.1 mg/dL (7.8-10.44); Carbon Dioxide 22 mmol/L (22-29); Chloride 99 mmol/L (98-107); Estimated GFR-MDRD Greater than 90; Globulin 2.4 g/dL (2.4-3.5); Glucose 128 mg/dL (70-105); Potassium 3.7 mmol/L (3.5-5.1); Protein, Total 6.9 g/dL (6.0-8.3); Sodium 134 mmol/L (136-145)
[2019-05-18 20:33] LABS: Alcohol 419 mg/dL (Less than 10)
[2019-05-18 20:45] LABS: Benzodiazepine Screen Detected (NotDetected); Medtox Reader # READER 4; THC/Cannabinoid Screen Not Detected (NotDetected)
[2019-05-18 20:46] LABS: Amphetamine Not Detected (NotDetected); Barbiturates Screen Not Detected (NotDetected); Cocaine Metabolite Screen Not Detected (NotDetected); Medtox Control Line Valid? VALID (VALID); Methadone Not Detected (NotDetected); Methamphetamine Not Detected (NotDetected); Opiate Screen Not Detected (NotDetected); Oxycodone Screen Not Detected (NotDetected); Phencyclidine (PCP) Not Detected (NotDetected); Tricyclic Screen Not Detected (NotDetected)
== END 2019-05-19 00:02 | disposition home or self-care (01) ==
LOC: ERS 18:43
DX: F10.129 Alcohol abuse with intoxication, unspecified (principal); I10 Essential (primary) hypertension; F41.9 Anxiety disorder, unspecified; F17.290 Nicotine dependence, other tobacco product, uncomplicated; Y90.0 Blood alcohol level of less than 20 mg/100 ml
CPT/HCPCS: 36415; 80053; 80306; 80307; 82550; 83690; 85025; 93005; 96365; 96366; J3411; J7042

== ENCOUNTER 2019-06-13 13:52 | Emergency (ER) | payer SELFPAY ==
[2019-06-13] MEDS ORDERED: Lorazepam 2 MG/ML VIAL ONE (14:36)
--- NOTE | 2019-06-13 14:58 | CT ---
Exam: CT brain PROVIDED CLINICAL HISTORY: Altered mental status COMPARISON: 02/28/2019 FINDINGS: The ventricular system is normal in size and morphology. No evidence for intracranial hemorrhage or mass effect. The extracranial soft tissues and osseous structures demonstrate no evidence for an acute abnormality. IMPRESSION: No evidence for intracranial hemorrhage or mass effect.
[2019-06-13 15:03] LABS: #Basophils 0.1 thou/uL (0.0-0.2); #Eosinphils 0.3 thou/uL (0.0-0.7); #Monocytes 0.4 thou/uL (0.11-0.59); #Neutrophils 2.9 thou/uL (1.40-6.50); %Basophils 1.7 % (0.0-1.0); %Eosinophils 4.4 % (0.0-10.0); %Lymphocytes 35.2 % (21.0-51.0); %Monocytes 7.7 % (0.0-10.0); Hemoglobin 14.6 g/dL (14.0-18.0); Mean Corpuscular HGB CONC 34.8 g/dL (32.0-36.0); Mean Corpuscular Hemoglobin 35.1 pg (27.0-31.0); Mean Platelet Volume 6.9 fL (7.4-10.4); Platelet Count 192 thou/uL (130-400); RBC Distribution Width 13.2 % (11.5-14.5); Red Blood Cell (RBC) Count 4.15 mill/uL (4.70-6.10); White Blood Cell (WBC) Count 5.7 thou/uL (4.8-10.8)
[2019-06-13 15:08] LABS: ALT (SGPT) 63 U/L (8-55); AST (SGOT) 127 U/L (5-34); Acetaminophen Less than 6.0 mcg/mL (10.0-30.0); Albumin 5.1 g/dL (3.5-5.0); Alkaline Phosphatase 144 U/L (40-110); Anion Gap 19 mmol/L (10-20); BUN (Urea Nitrogen) 4 mg/dL (8.9-20.6); Bilirubin, Total 1.6 mg/dL (0.2-1.2); Calc. Creatinine Clearance 0 mL/min (70-130); Calcium 9.6 mg/dL (7.8-10.44); Carbon Dioxide 25 mmol/L (22-29); Chloride 98 mmol/L (98-107); Estimated GFR-MDRD Greater than 90; Globulin 2.9 g/dL (2.4-3.5); Glucose 113 mg/dL (70-105); Magnesium 1.7 mg/dL (1.6-2.6); Potassium 4.6 mmol/L (3.5-5.1); Salicylate Less than 8.0 mg/dL (15.0-30.0); Sodium 137 mmol/L (136-145)
[2019-06-13 15:15] LABS: Alcohol 445 mg/dL (Less than 10)
[2019-06-13 15:52] LABS: Bilirubin Negative (Negative); Blood, Urine Negative (Negative); Clarity Clear (Clear); Glucose, Urine (Dipstick) Normal (Negative); Leukocyte Negative Leu/uL (Negative); Nitrite Negative (Negative); Protein, Urine (Dipstick) Negative (Neg-Trace); Urobilinogen Normal mg/dL (Less than 2)
[2019-06-14] MEDS ORDERED: Multivitamins, Adult 10 ML, Thiamine HCl 100 MG, Folic Acid 1 MG in Dextrose 5 %-0.45 %... IV SCH (09:00)
== END 2019-06-13 19:24 | disposition home or self-care (01) ==
LOC: ERS 13:52
DX: F10.129 Alcohol abuse with intoxication, unspecified (principal); I10 Essential (primary) hypertension; K74.60 Unspecified cirrhosis of liver; F41.9 Anxiety disorder, unspecified; F17.210 Nicotine dependence, cigarettes, uncomplicated; Y90.8 Blood alcohol level of 240 mg/100 ml or more
CPT/HCPCS: 70450; 80053; 80307; 81003; 82140; 83735; 85025; 93005; 96361; 96365; 96366; 96374; J2060; J7042

== ENCOUNTER 2019-07-12 11:07 | Observation (INO) | payer BC, SELFPAY ==
[2019-07-12] MEDS ORDERED: Ondansetron PF 4 MG/2 ML Vial ONE ×2 (11:23→14:04)
[2019-07-12] MEDS ORDERED: Diazepam 10 MG/2 ML SYRINGE ONE (11:54)
--- NOTE | 2019-07-12 12:02 | RAD ---
Portable frontal chest radiograph: 07/12/2019 COMPARISON: 11/27/2018 HISTORY: Chest pain, epigastric pain FINDINGS: No pneumothorax or pleural fluid. No focal consolidation or alveolar edema. There are a few old lateral left-sided rib fractures. IMPRESSION: No focal consolidation or alveolar edema.
[2019-07-12 12:10] LABS: Acetaminophen Less than 6.0 mcg/mL (10.0-30.0); Alcohol 30 mg/dL (Less than 10); Salicylate Less than 8.0 mg/dL (15.0-30.0)
[2019-07-12 12:13] LABS: Band 7 % (5-11); Hemoglobin 16.8 g/dL (14.0-18.0); Lymphocytes 8 % (21-51); MDiff Complete? YES; Mean Corpuscular HGB CONC 34.9 g/dL (32.0-36.0); Mean Corpuscular Hemoglobin 34.8 pg (27.0-31.0); Mean Corpuscular Volume 99.8 fL (78.0-98.0); Monocytes 3 % (0-10); Neutrophil 82 % (42-75); Platelet Count 274 thou/uL (130-400); RBC Distribution Width 12.7 % (11.5-14.5); Red Blood Cell (RBC) Count 4.82 mill/uL (4.70-6.10); White Blood Cell (WBC) Count 11.3 thou/uL (4.8-10.8)
[2019-07-12 12:29] LABS: Bacteria/HPF None Seen HPF (None Seen); Bilirubin Negative (Negative); Blood, Urine Negative (Negative); Clarity Clear (Clear); Glucose, Urine (Dipstick) Normal (Negative); Leukocyte Negative Leu/uL (Negative); Nitrite Negative (Negative); Protein, Urine (Dipstick) 100 mg/dL (Neg-Trace); RBC/HPF 0-3 HPF (0-3); Urobilinogen Normal mg/dL (Less than 2); WBC/HPF 0-3 HPF (0-3)
[2019-07-12 12:30] LABS: Amphetamine Not Detected (NotDetected); Barbiturates Screen Not Detected (NotDetected); Benzodiazepine Screen Detected (NotDetected); Cocaine Metabolite Screen Not Detected (NotDetected); Medtox Control Line Valid? VALID (VALID); Medtox Reader # READER 1; Methadone Not Detected (NotDetected); Methamphetamine Not Detected (NotDetected); Opiate Screen Not Detected (NotDetected); Oxycodone Screen Not Detected (NotDetected); Phencyclidine (PCP) Not Detected (NotDetected); THC/Cannabinoid Screen Not Detected (NotDetected); Tricyclic Screen Not Detected (NotDetected)
[2019-07-12 12:34] LABS: ALT (SGPT) 92 U/L (8-55); AST (SGOT) 227 U/L (5-34); Albumin 5.7 g/dL (3.5-5.0); Alkaline Phosphatase 153 U/L (40-110); Anion Gap 37 mmol/L (10-20); BUN (Urea Nitrogen) 13 mg/dL (8.9-20.6); Bilirubin, Total 3.4 mg/dL (0.2-1.2); Calc. Creatinine Clearance 0 mL/min (70-130); Calcium 10.5 mg/dL (7.8-10.44); Carbon Dioxide 14 mmol/L (22-29); Chloride 83 mmol/L (98-107); Estimated GFR-MDRD Greater than 90; Globulin 3.1 g/dL (2.4-3.5); Glucose 91 mg/dL (70-105); Lipase 50 U/L (8-78); Potassium 5.8 mmol/L (3.5-5.1); Protein, Total 8.8 g/dL (6.0-8.3); Sodium 128 mmol/L (136-145)
[2019-07-12 13:17] LABS: Base Excess-Venous -7.1 mmol/L (-2.0 to 3.0); Calcium, Ionized 0.95 mmol/L (See Comments:); Chloride 95 mmol/L (98-107); Hemoglobin - Calc 17.3 g/dL (14.0-18.0); Potassium 5.8 mmol/L (3.5-5.1); Sodium 125 mmol/L (138-145); T. Carbon Dioxide 19.1 mmol/L (22.0-28.0); vO2 Saturation-calc 92.3 % (60.0-85.0)
[2019-07-12] MEDS ORDERED: Thiamine HCl 200 MG/2 ML VIAL SLOW IVP SCH (13:30)
--- NOTE | 2019-07-12 15:41 | ULT ---
EXAM: Right upper quadrant ultrasound PROVIDED CLINICAL HISTORY: Abdominal pain COMPARISON: None FINDINGS: Visualized portions of the pancreas appear normal. Liver demonstrates no mass or intrahepatic biliary ductal dilatation. Increased echogenicity of the h epatic parenchyma is demonstrated, compatible with fatty infiltration. Common duct is nondilated. Gallbladder demonstrates a small gallstone without wall thickening or vashti cholecystic fluid. Right kidney demonstrates no hydronephrosis or mass. IMPRESSION: 1. Gallstone without evidence for acute findings related to the gallbladder. 2. Hepatic steatosis.
[2019-07-12 16:59] VITALS: BMI 22.4
[2019-07-12] MEDS ORDERED: Ondansetron PF 4 MG/2 ML Vial IVP PRN (17:03)
[2019-07-12] MEDS: Dextrose 5 % And 0.9 % NaCl 1,000 ML IV SCH ×2 (17:19→22:13)
[2019-07-12 17:30] LABS: INR-International Normal Ratio 1.1; Prothrombin Time 13.9 SEC (12.0-14.7)
[2019-07-12] MEDS: Lorazepam 1 MG TAB PO PRN ×2 (18:02→22:08)
--- NOTE | 2019-07-12 18:33 | PDOC.HHP ---
Hospitalist HPI - History of Present Illness epigastric pain and alcohol withdrawal History of Present Illness: Mr. Mcneil is a 33yo M with a MHx of GERD and recurrent alcohol withdrawals (no DTs or seizures per patient) who presents to the ED complaining of epigastric pain and alcohol withdrawal. Per patient, has been binge drinking for the past couple of days, and noticed symptoms typical of previous alcohol withdrawals, so presented to the ED. In addition, has had pressure-like epigastric pain, constant, mild in intensity that improved since admission to the ED. ED Course: In the ED, treatment was started for alcohol withdrawal, and labs were consistent with alcoholic ketosis so the patient was admitted to the telemetry floor. Hospitalist ROS - Review of Systems Constitutional: denies: fever, chills, sweats, weakness, malaise, other Respiratory: denies: cough, dry, shortness of breath, hemoptysis, SOB with excertion, pleuritic pain, sputum, wheezing, other Cardiovascular: denies: chest pain, palpitations, orthopnea, paroxysmal noc. dyspnea, edema, light headedness, other Gastrointestinal: denies: nausea, vomiting, abdominal pain, diarrhea, constipation, melena, hematochezia, other Genitourinary: denies: dysuria, frequency, incontinence, hematuria, retention, other Neurological: denies: weakness, numbness, incoordination, change in speech, confusion, seizures, other Other: denies visual or auditory hallucinations, tactile disturbances, headache, sweating, anxiety, agitation - Medication Medications: Active Medications Generic Name Dose Route Start Last Admin Trade Name Freq PRN Reason Stop Dose Admin Dextrose/Sodium Chloride 1,000 mls @ 150 mls/hr 07/12/19 16:45 07/12/19 17:19 D5 0.9% Ns IV 1,000 mls .Q6H40M GINI Administration Lorazepam 2 mg 07/12/19 17:03 07/12/19 18:02 Ativan PO 2 mg Q4H PRN Administration CIWA >7 Ondansetron HCl 4 mg 07/12/19 17:03 07/12/19 18:02 Zofran IVP 4 mg Q6H PRN Administration Nausea/Vomiting Hospitalist History - Past Medical History Source: patient Cardiac: reports: no pertinent history Pulmonary: reports: no pertinent history VAMPER: reports: no pertinent history Gastrointestinal: reports: GERD Heme/Onc: reports: no pertinent history Hepatobiliary: reports: no pertinent history Psych: reports: no pertinent history Musculoskeletal: reports: no pertinent history Rheumatologic: reports: no pertinent history Infectious Disease: reports: no pertinent history - Past Surgical History Past Surgical History: reports: no pertinent history - Family History Family History: reports: hypertension - Social History Smoking Status: Never smoker Alcohol: reports: Heavy Drugs: reports: none Living Situation: Alone Activity level: independent ambulation - Exam General Appearance: NAD, awake alert Eye: PERRL ENT: normocephalic atraumatic, no oropharyngeal lesions, moist mucosa Neck: supple, symmetric, no JVD, no thyromegaly, no lymphadenopathy, no carotid bruit Heart - other findings: regular rhythm, tachycardic; 2/6 decrescendo systolic 2nd intercostal Respiratory: CTAB, no wheezes, no rales, no ronchi, normal chest expansion, no tachypnea, normal percussion Gastrointestinal: soft, non-tender, non-distended, normal bowel sounds, no palpable masses, no hepatomegaly, no splenomegaly, no bruit Extremities: no cyanosis, no clubbing, no edema Neurological: cranial nerve grossly intact, normal sensation to touch, no weakness, no focal deficits, no new deficit Neurological - other findings: mild tremor stretched hands; mild tremor in lips Musculoskeletal: normal tone, normal strength, no muscle wasting Psychiatric: normal affect, normal behavior, A&O x 3 Hospitalist Results - Labs Result Diagrams: 07/12/19 11:34 07/12/19 11:34 Lab results: WBC 11.3 thou/uL (4.8-10.8) H 07/12/19 11:34 Hgb 16.8 g/dL (14.0-18.0) 07/12/19 11:34 Hct 48.1 % (42.0-52.0) 07/12/19 11:34 MCV 99.8 fL (78.0-98.0) H 07/12/19 11:34 Plt Count 274 thou/uL (130-400) 07/12/19 11:34 Band Neuts % (Manual) 7 % (5-11) 07/12/19 11:34 VBG pCO2 35.0 mmHg (40.0-50.0) L 07/12/19 13:15 VBG pO2 69.2 mmHg (35.0-45.0) H 07/12/19 13:15 Sodium 128 mmol/L (136-145) L 07/12/19 11:34 Potassium 5.8 mmol/L (3.5-5.1) H 07/12/19 11:34 Chloride 83 mmol/L (98-107) L 07/12/19 11:34 Carbon Dioxide 14 mmol/L (22-29) L 07/12/19 11:34 BUN 13 mg/dL (8.9-20.6) 07/12/19 11:34 Creatinine 1.01 mg/dL (0.7-1.3) 07/12/19 11:34 Glucose 91 mg/dL (70-105) 07/12/19 11:34 Calcium 10.5 mg/dL (7.8-10.44) H 07/12/19 11:34 Total Bilirubin 3.4 mg/dL (0.2-1.2) H 07/12/19 11:34 AST 227 U/L (5-34) H 07/12/19 11:34 ALT 92 U/L (8-55) H 07/12/19 11:34 Alkaline Phosphatase 153 U/L (40-110) H 07/12/19 11:34 Serum Total Protein 8.8 g/dL (6.0-8.3) H 07/12/19 11:34 Albumin 5.7 g/dL (3.5-5.0) H 07/12/19 11:34 Lipase 50 U/L (8-78) 07/12/19 11:34 Urine Ketones 100 mg/dL (Negative) A 07/12/19 11:45 Urine Blood Negative (Negative) 07/12/19 11:45 Urine Nitrite Negative (Negative) 07/12/19 11:45 Ur Leukocyte Esterase Negative Tatyana/uL (Negative) 07/12/19 11:45 Urine RBC 0-3 HPF (0-3) 07/12/19 11:45 Urine WBC 0-3 HPF (0-3) 07/12/19 11:45 Ur Squamous Epith Cells 4-6 HPF (0-3) A 07/12/19 11:45 Urine Bacteria None Seen HPF (None Seen) 07/12/19 11:45 - EKG Interpretation EKG: sinus tachycardia with no signs of ischemia, HR in 130s - Radiology Interpretation Chest x-ray Status: image reviewed by ut Hospitalist H&P A/P - Problem (1) Alcoholic ketosis Code(s): E87.2 - ACIDOSIS Status: Acute (2) Alcohol withdrawal Code(s): F10.239 - ALCOHOL DEPENDENCE WITH WITHDRAWAL, UNSPECIFIED Status: Acute (3) Alcoholic hepatitis Code(s): K70.10 - ALCOHOLIC HEPATITIS WITHOUT ASCITES Status: Acute Qualifiers: Ascites presence: without ascites Qualified Code(s): K70.10 - Alcoholic hepatitis without ascites - Plan Plan: -patient receiving supportive care; D5W + NS 150cc/hr, thiamine, folate -CIWA on presentation 9; will treat with ativan PRN -for alcoholic hepatitis, Maddrey score < 32; no need for steroids -
[2019-07-12] MEDS ORDERED: Dextrose 50 % In Water 50 ML SYRINGE IV SCH (19:00)
[2019-07-12] MEDS ORDERED: Insulin Regular 300 UNITS/3 ML VIAL IVP SCH (19:00)
[2019-07-12 20:56] LABS: Anion Gap 15 mmol/L (10-20); BUN (Urea Nitrogen) 15 mg/dL (8.9-20.6); Calc. Creatinine Clearance 65 mL/min (70-130); Carbon Dioxide 26 mmol/L (22-29); Chloride 96 mmol/L (98-107); Estimated GFR-MDRD 70; Glucose 120 mg/dL (70-105); Potassium 4.2 mmol/L (3.5-5.1); Sodium 133 mmol/L (136-145)
[2019-07-13 00:11] LABS: Anion Gap 14 mmol/L (10-20); BUN (Urea Nitrogen) 13 mg/dL (8.9-20.6); Calc. Creatinine Clearance 75 mL/min (70-130); Calcium 8.8 mg/dL (7.8-10.44); Carbon Dioxide 25 mmol/L (22-29); Chloride 98 mmol/L (98-107); Estimated GFR-MDRD 82; Glucose 193 mg/dL (70-105); Magnesium 1.9 mg/dL (1.6-2.6); Sodium 133 mmol/L (136-145)
[2019-07-13] MEDS: Lorazepam 1 MG TAB PO PRN (02:04)
[2019-07-13 04:19] LABS: Anion Gap 12 mmol/L (10-20); BUN (Urea Nitrogen) 9 mg/dL (8.9-20.6); Calc. Creatinine Clearance 107 mL/min (70-130); Calcium 8.9 mg/dL (7.8-10.44); Carbon Dioxide 26 mmol/L (22-29); Chloride 98 mmol/L (98-107); Estimated GFR-MDRD Greater than 90; Glucose 120 mg/dL (70-105); Magnesium 1.9 mg/dL (1.6-2.6); Phosphorus 2.6 mg/dL (2.3-4.7); Sodium 132 mmol/L (136-145)
[2019-07-13] MEDS ORDERED: Dextrose 5 % And 0.9 % NaCl 1,000 ML IV SCH (06:15)
[2019-07-13] MEDS ORDERED: Thiamine 100 MG TAB PO SCH (09:00)
[2019-07-13] MEDS ORDERED: Folic Acid 1 MG TAB PO SCH (09:00)
[2019-07-13] MEDS ORDERED: Multivitamin W/ Minerals 1 TAB PO SCH (09:00)
[2019-07-13] MEDS ORDERED: FLU VACC QS2019-20(6MOS UP)/PF 60 MCG/0.5 ML SYRINGE IM ONE (09:00)
[2019-07-13 11:12] VITALS: BP 131/75; TEMP 98.9
--- NOTE | 2019-07-15 02:01 | DIS ---
DATE OF ADMISSION: 07/12/2019 DATE OF DISCHARGE: 07/13/2019 HOSPITAL COURSE: Mr. Mcneil is a 33-year-old male with a medical history of GERD and recurrent alcohol withdrawals (no DTs or seizures per patient), who presented to the ED complaining of epigastric pain and alcohol withdrawal. The patient was admitted to the telemetry floor for further management of alcohol withdrawal, as well as alcoholic ketosis. The patient exhibited only mild symptoms of alcohol withdrawal on presentation throughout hospitalization and required only 4 mg of Ativan. Electrolyte imbalances were corrected. The patient was discharged home hemodynamically stable with very mild tremors. His CIWA score on discharge was 4. Vitals were unremarkable. PHYSICAL EXAMINATION: GENERAL: The patient was in no apparent distress. Awake and alert. HEENT: Normocephalic, atraumatic. No oropharyngeal lesions. Moist mucosa. HEART: Regular rate and rhythm. No murmurs. LUNGS: Clear to auscultation bilaterally. No wheezes, no rales, no rhonchi. Normal chest expansion. No tachypnea. GI: Soft, nontender, nondistended. Normal bowel sounds. No palpable masses. No hepatomegaly. No splenomegaly. NEUROLOGICAL: Cranial nerves grossly intact. Normal sensation to touch. No focal deficits. No new deficits. Positive for mild tremors in his hands. ASSESSMENT AND PLAN: Mr. Mcneil is a 33-year-old male with history of recurrent alcohol withdrawal, who presented with alcoholic ketosis, alcohol withdrawal that was mild, and alcoholic hepatitis. The patient presented with only mild symptoms of alcohol withdrawal. His initial CIWA score was 10 and after receiving only 4 mg of Ativan, CIWA score decreased to 4, and he was without Ativan for nearly half a day without exhibiting severe alcohol withdrawal symptoms. For his alcoholic hepatitis, the Maddrey score was less than 32, so the patient was not treated with any steroids. Will follow up with his PCP. For his alcoholic ketosis, the patient will be closely examined up after fluid supplementation and electrolyte imbalances were corrected. Job ID: [id number]
== END 2019-07-13 14:29 | disposition home or self-care (01) ==
LOC: ERS 11:07 → INTOOBSV 16:51 → 2NO 16:51
PROVIDERS: ADMIT Internal Medicine; ATTEND Emergency Medicine
DX: F10.239 Alcohol dependence with withdrawal, unspecified (principal); E87.2 Acidosis; K70.10 Alcoholic hepatitis without ascites; R10.13 Epigastric pain; K21.9 Gastro-esophageal reflux disease without esophagitis; I10 Essential (primary) hypertension
CPT/HCPCS: 36415; 71045; 76705; 80048; 80053; 80306; 80307; 81003; 81015; 82010; 82330; 82803; 83690; 83735; 84100; 85025; 85610; 93005; 96361; 96365; 96375; 96376; G0378; J1815; J2405; J3360; J3411

== ENCOUNTER 2019-09-26 06:07 | Inpatient (IN) | payer BC ==
[2019-09-26] MEDS ORDERED: Ondansetron PF 4 MG/2 ML Vial ONE (06:15)
[2019-09-26] MEDS ORDERED: Lorazepam 2 MG/ML VIAL ONE ×2 (06:20→11:21)
[2019-09-26] MEDS ORDERED: Multivitamins, Adult 10 ML, Thiamine HCl 100 MG, Folic Acid 1 MG in Dextrose 5 %-0.45 %... IV SCH (07:00)
[2019-09-26 07:32] LABS: #Basophils 0.1 thou/uL (0.0-0.2); #Eosinphils 0.2 thou/uL (0.0-0.7); #Lymphocytes 2.6 thou/uL (1.20-3.40); #Monocytes 0.7 thou/uL (0.11-0.59); #Neutrophils 2.1 thou/uL (1.40-6.50); %Basophils 1.5 % (0.0-1.0); %Eosinophils 3.3 % (0.0-10.0); %Lymphocytes 45.9 % (21.0-51.0); %Monocytes 11.7 % (0.0-10.0); %Neutrophils 37.5 % (42.0-75.0); Hemoglobin 14.4 g/dL (14.0-18.0); Mean Corpuscular HGB CONC 34.6 g/dL (32.0-36.0); Mean Corpuscular Hemoglobin 33.9 pg (27.0-31.0); Platelet Count 134 thou/uL (130-400); RBC Distribution Width 12.9 % (11.5-14.5); Red Blood Cell (RBC) Count 4.24 mill/uL (4.70-6.10); White Blood Cell (WBC) Count 5.6 thou/uL (4.8-10.8)
[2019-09-26 07:41] LABS: ALT (SGPT) 101 U/L (8-55); AST (SGOT) 346 U/L (5-34); Albumin 5.3 g/dL (3.5-5.0); Alkaline Phosphatase 150 U/L (40-110); Anion Gap 22 mmol/L (10-20); BUN (Urea Nitrogen) Less than 4 mg/dL (8.9-20.6); Bilirubin, Total 2.2 mg/dL (0.2-1.2); CK (CPK) 209 U/L (30-200); Calc. Creatinine Clearance 0 mL/min (70-130); Calcium 10.3 mg/dL (7.8-10.44); Carbon Dioxide 24 mmol/L (22-29); Chloride 96 mmol/L (98-107); Estimated GFR-MDRD Greater than 90; Globulin 2.8 g/dL (2.4-3.5); Glucose 115 mg/dL (70-105); Lipase 105 U/L (8-78); Potassium 3.8 mmol/L (3.5-5.1); Protein, Total 8.1 g/dL (6.0-8.3); Sodium 138 mmol/L (136-145)
[2019-09-26 07:43] LABS: Base Excess-Venous 0.7 mmol/L (-2.0 to 3.0); Bicarbonate (HCO3v) 23.6 mmol/L (22.0-28.0); CO2 Tension (PvCO2) 32.1 mmHg (40.0-50.0); Calcium, Ionized 1.01 mmol/L (See Comments:); Chloride 100 mmol/L (98-107); Hemoglobin - Calc 14.7 g/dL (14.0-18.0); Potassium 3.4 mmol/L (3.5-5.1); Sodium 136 mmol/L (138-145); T. Carbon Dioxide 24.5 mmol/L (22.0-28.0); vO2 Saturation-calc 99.6 % (60.0-85.0)
[2019-09-26] MEDS ORDERED: Magnesium 2 GM/50 ML BAG (IN WATER) ONE (08:09)
[2019-09-26] MEDS ORDERED: cloNIDine 0.1 MG TAB ONE (12:07)
[2019-09-26 12:31] LABS: Bilirubin Negative (Negative); Blood, Urine Negative (Negative); Clarity Clear (Clear); Glucose, Urine (Dipstick) Normal (Negative); Leukocyte Negative Leu/uL (Negative); Nitrite Negative (Negative); Protein, Urine (Dipstick) Negative (Neg-Trace); Urobilinogen 3 mg/dL (Less than 2)
[2019-09-26] MEDS ORDERED: cloNIDine 0.1 MG TAB PO PRN (12:40)
[2019-09-26] MEDS ORDERED: Ondansetron ODT 4 MG TAB PO PRN (12:40)
[2019-09-26] MEDS ORDERED: Acetaminophen 325 MG TAB PO PRN (12:40)
[2019-09-26] MEDS ORDERED: Ondansetron PF 4 MG/2 ML Vial IVP PRN (12:40)
[2019-09-26] MEDS ORDERED: Lorazepam 1 MG TAB PO PRN (12:45)
[2019-09-26 13:15] LABS: Amphetamine Not Detected (NotDetected); Barbiturates Screen Not Detected (NotDetected); Benzodiazepine Screen Detected (NotDetected); Cocaine Metabolite Screen Not Detected (NotDetected); Medtox Control Line Valid? VALID (VALID); Medtox Reader # READER 1; Methadone Not Detected (NotDetected); Methamphetamine Not Detected (NotDetected); Opiate Screen Not Detected (NotDetected); Oxycodone Screen Not Detected (NotDetected); Phencyclidine (PCP) Not Detected (NotDetected); THC/Cannabinoid Screen Not Detected (NotDetected); Tricyclic Screen Not Detected (NotDetected)
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
[2019-09-26] MEDS ORDERED: Metoprolol Tartrate 25 MG TAB PO SCH (13:30)
[2019-09-26] MEDS: D5 1/2 NS w/20 mEq KCL 1,000 ML IV SCH ×2 (14:08→23:56)
[2019-09-26 14:24] VITALS: BMI 22.5
[2019-09-26 15:17] LABS: Magnesium 1.7 mg/dL (1.6-2.6); Phosphorus 3.6 mg/dL (2.3-4.7)
[2019-09-26] MEDS: cloNIDine 0.1 MG TAB PO SCH ×2 (15:58→20:30)
[2019-09-26] MEDS ORDERED: chlordiazePOXIDE HCl 25 MG CAP PO SCH (18:00)
[2019-09-26] MEDS: Metoprolol Tartrate 25 MG TAB PO SCH (20:30)
[2019-09-26] MEDS: Famotidine 20 MG TAB PO SCH (20:30)
[2019-09-27 04:50] LABS: ALT (SGPT) 70 U/L (8-55); AST (SGOT) 152 U/L (5-34); Alkaline Phosphatase 105 U/L (40-110); Anion Gap 11 mmol/L (10-20); BUN (Urea Nitrogen) 5 mg/dL (8.9-20.6); Bilirubin, Total 1.4 mg/dL (0.2-1.2); Calc. Creatinine Clearance 118 mL/min (70-130); Calcium 8.8 mg/dL (7.8-10.44); Carbon Dioxide 24 mmol/L (22-29); Chloride 105 mmol/L (98-107); Estimated GFR-MDRD Greater than 90; Globulin 2.1 g/dL (2.4-3.5); Glucose 121 mg/dL (70-105); Magnesium 1.8 mg/dL (1.6-2.6); Phosphorus 2.9 mg/dL (2.3-4.7); Potassium 4.2 mmol/L (3.5-5.1); Protein, Total 6.1 g/dL (6.0-8.3); Sodium 136 mmol/L (136-145)
[2019-09-27] MEDS: Metoprolol Tartrate 25 MG TAB PO SCH ×2 (09:32→20:14)
[2019-09-27] MEDS: Thiamine 100 MG TAB PO SCH (09:32)
[2019-09-27] MEDS: Multivit, Therapeutic 1 TAB PO SCH (09:32)
[2019-09-27] MEDS: Famotidine 20 MG TAB PO SCH ×2 (09:32→20:15)
[2019-09-27] MEDS: Folic Acid 1 MG TAB PO SCH (09:32)
[2019-09-27] MEDS: cloNIDine 0.1 MG TAB PO SCH ×3 (09:33→20:15)
[2019-09-27] MEDS: D5 1/2 NS w/20 mEq KCL 1,000 ML IV SCH ×2 (09:58→18:08)
--- NOTE | 2019-09-27 15:54 | PDOC.HOSPP ---
- Subjective Encounter Date: 09/27/19 Encounter Time: 09:30 Subjective: Patient seen and examined for DTs. Tremors improving. No AMS. No Palpitations/N/ V/D. No other complaints. No overnight events - Objective Vital Signs & Weight: Vital Signs (12 hours) Temp Pulse Resp BP BP Pulse Ox 09/27/19 14:45 130/80 09/27/19 12:00 98.8 F 86 18 127/84 98 09/27/19 09:33 119/81 09/27/19 07:07 97.6 F 91 16 139/86 99 09/27/19 04:00 99.1 F 84 16 125/94 H 100 Weight Weight 135 lb 9 oz I&O: 09/26/19 09/27/19 09/28/19 06:59 06:59 06:59 Intake Total 3600 Output Total 1300 Balance 2300 Result Diagrams: 09/26/19 06:21 09/27/19 04:03 EKG Reviewed by me: Yes (Tele SR) Hospitalist ROS - Review of Systems Respiratory: denies: cough, dry, shortness of breath, hemoptysis, SOB with excertion, pleuritic pain, sputum, wheezing, other Cardiovascular: denies: chest pain, palpitations, orthopnea, paroxysmal noc. dyspnea, edema, light headedness, other Gastrointestinal: denies: nausea, vomiting, abdominal pain, diarrhea, constipation, melena, hematochezia, other - Medication Medications: Active Medications Generic Name Dose Route Start Last Admin Trade Name Freq PRN Reason Stop Dose Admin Chlordiazepoxide HCl 10 mg 09/26/19 21:00 09/27/19 14:44 Librium PO 10 mg TID GINI Administration Clonidine 0.1 mg 09/27/19 15:00 09/27/19 14:45 Catapres PO 0.1 mg TID GINI Administration Famotidine 20 mg 09/26/19 21:00 09/27/19 09:32 Pepcid PO 20 mg BID GINI Administration Folic Acid 1 mg 09/27/19 09:00 09/27/19 09:32 Folvite PO 1 mg DAILY GINI Administration Potassium Chloride/Dextrose/Sod Cl 1,000 mls @ 100 mls/hr 09/26/19 13:15 11/10 09:58 D5 1/2 Ns W/20 Meq Kcl IV 1,000 mls .Q10H GINI Administration Lorazepam 2 mg 09/26/19 12:45 09/26/19 20:30 Ativan PO 2 mg Q4H PRN Administration ASE >=9 Metoprolol Tartrate 25 mg 09/26/19 21:00 09/27/19 09:32 Lopressor PO 25 mg BID GINI Administration Multivitamins 1 tab 09/27/19 09:00 09/27/19 09:32 Theragran PO 1 tab DAILY GINI Administration Thiamine HCl 100 mg 09/27/19 09:00 09/27/19 09:32 Thiamine PO 100 mg DAILY GINI Administration - Exam General Appearance: NAD Heart: RRR, no gallops Respiratory: no wheezes, no ronchi Gastrointestinal: non-tender, normal bowel sounds Extremities: no cyanosis Neurological: no new deficit Hosp A/P - Plan DVT proph w/SCDs 1. Delirium tremens. 2. Generalized tremors secondary to #1. 3. Alcoholic hepatitis. 4. Chronic alcohol abuse. 5. Hypertension. 6. Palpitations/sinus tachycardia secondary to #1. 7. Medication noncompliance. 8. Mild alcoholic ketoacidosis. PLAN: Cont Ativan PRN Cont ASE protocol Cont Clonidine/Metoprolol Cont IVF Transfer to medical Cont Thiamine/MVM/Folic acid
[2019-09-28 06:12] LABS: ALT (SGPT) 69 U/L (8-55); AST (SGOT) 113 U/L (5-34); Albumin 4.2 g/dL (3.5-5.0); Alkaline Phosphatase 100 U/L (40-110); Anion Gap 10 mmol/L (10-20); BUN (Urea Nitrogen) 6 mg/dL (8.9-20.6); Bilirubin, Total 0.7 mg/dL (0.2-1.2); Calc. Creatinine Clearance 131 mL/min (70-130); Calcium 9.1 mg/dL (7.8-10.44); Carbon Dioxide 24 mmol/L (22-29); Chloride 103 mmol/L (98-107); Estimated GFR-MDRD Greater than 90; Globulin 2.3 g/dL (2.4-3.5); Glucose 125 mg/dL (70-105); Magnesium 1.4 mg/dL (1.6-2.6); Potassium 3.6 mmol/L (3.5-5.1); Protein, Total 6.5 g/dL (6.0-8.3); Sodium 133 mmol/L (136-145)
[2019-09-28] MEDS: D5 1/2 NS w/20 mEq KCL 1,000 ML IV SCH (06:25)
[2019-09-28] MEDS ORDERED: Magnesium Sulfate 4 GM in Sodium Chloride 0.9% 250 ML 250 ML IVPB SCH (07:45)
[2019-09-28] MEDS: Thiamine 100 MG TAB PO SCH (08:33)
[2019-09-28] MEDS: Folic Acid 1 MG TAB PO SCH (08:33)
[2019-09-28] MEDS: Famotidine 20 MG TAB PO SCH ×2 (08:33→20:54)
[2019-09-28] MEDS: Multivit, Therapeutic 1 TAB PO SCH (08:33)
[2019-09-28] MEDS: Metoprolol Tartrate 25 MG TAB PO SCH ×3 (08:33→20:55)
[2019-09-28] MEDS: cloNIDine 0.1 MG TAB PO SCH ×3 (08:34→20:54)
--- NOTE | 2019-09-28 12:04 | DIS ---
DATE OF ADMISSION: 09/26/2019 DATE OF DISCHARGE: 09/28/2019 DISCHARGE DISPOSITION: Home. FOLLOWUP: Follow up with primary care physician at [facility] in 2 to 3 days. A basic metabolic profile with magnesium after 1 week is recommended, primary care physician advised to follow. The patient was seen and examined on the day of discharge. Denies any new complaints. Generalized tremors have significantly improved. BRIEF HOSPITAL COURSE: The patient is a 33-year-old male with chronic alcohol abuse, presented to the emergency room with generalized tremors. His workup was consistent with alcohol withdrawal. He was monitored initially on telemetry and was started on benzodiazepines per protocol. His alcohol level on admission was 67. He was advised to stay in the hospital for another day or two for the withdrawal. However, the patient requested to be discharged. He was advised to follow up with outpatient alcohol rehab resources. FINAL DIAGNOSES: 1. Alcohol withdrawal syndrome/mild delirium tremens. 2. Generalized tremor secondary to #1. 3. Alcoholic hepatitis, improving. His bilirubin at discharge was 0.7 from 2.2. 4. Hyponatremia. 5. Alcohol intoxication on admission. 6. Palpitations with sinus tachycardia secondary to withdrawal. 7. Hypertension. 8. History of chronic alcohol abuse. 9. Medication noncompliance. 10. Mild alcoholic ketoacidosis. 11. The patient understands the above plan of care. He was advised not to take benzodiazepines along with alcohol. He was extensively counseled on alcohol cessation. Job ID: [id number]
[2019-09-28] MEDS ORDERED: Lorazepam 1 MG TAB PO PRN (12:54)
[2019-09-28] MEDS: chlordiazePOXIDE HCl 25 MG CAP PO SCH ×2 (15:11→20:54)
[2019-09-28] MEDS: Magnesium Chloride 64 MG TAB PO SCH ×2 (15:12→20:55)
[2019-09-29] MEDS: Magnesium Chloride 64 MG TAB PO SCH ×2 (08:09→13:52)
[2019-09-29] MEDS: chlordiazePOXIDE HCl 25 MG CAP PO SCH ×2 (08:09→13:52)
[2019-09-29] MEDS: Thiamine 100 MG TAB PO SCH (08:09)
[2019-09-29] MEDS: Famotidine 20 MG TAB PO SCH (08:09)
[2019-09-29] MEDS: Folic Acid 1 MG TAB PO SCH (08:09)
[2019-09-29] MEDS: Multivit, Therapeutic 1 TAB PO SCH (08:09)
[2019-09-29] MEDS: Metoprolol Tartrate 25 MG TAB PO SCH ×2 (08:09→13:52)
[2019-09-29] MEDS: cloNIDine 0.1 MG TAB PO SCH ×2 (08:09→13:52)
[2019-09-29 12:03] VITALS: BP 120/81; TEMP 98.7
--- NOTE | 2019-09-29 19:46 | DIS ---
DATE OF ADMISSION: 09/26/2019 DATE OF DISCHARGE: 09/29/2019 DISCHARGE DISPOSITION: Home. The patient was seen and examined on the day of discharge. Denies any new complaints. Tremors have significantly improved. BRIEF HOSPITAL COURSE: The patient is a 33-year-old male with chronic alcohol abuse, presented to the emergency room with generalized tremors along with nausea. His workup was consistent with alcohol withdrawal syndrome. He was started on benzodiazepines along with beta blockers and clonidine with good response. He has been extensively counseled on alcohol cessation. His alcohol level on admission was 67. The patient requested to be discharged today. He was advised to follow up with outpatient alcohol cessation resources. FINAL DIAGNOSES: 1. Alcohol withdrawal syndrome. 2. Mild delirium tremens. 3. Generalized tremor secondary to #1. 4. Mild alcoholic hepatitis. His bilirubin improved to 0.7 from 2.2. 5. Hyponatremia. 6. Alcohol intoxication on admission. 7. Palpitations with sinus tachycardia secondary to #1. 8. Hypertension. 9. Chronic alcohol abuse. 10. Mild alcoholic ketoacidosis. 11. Medication noncompliance. Job ID: [id number]
--- NOTE | 2019-09-30 13:43 | EKG ---
Test Reason : EMERGENCY Blood Pressure : / mmHG Vent. Rate : 110 BPM Atrial Rate : 110 BPM P-R Int : 168 ms QRS Dur : 068 ms QT Int : 334 ms P-R-T Axes : 024 -04 011 degrees QTc Int : 452 ms Sinus tachycardia Anteroseptal infarct , age undetermined Abnormal ECG Confirmed by RAKESH MCDANIEL ([id number]), editor house organ RENZO LOVETT ([id number] on 09/30/2019 1:42:47 PM Referred By: Confirmed By:RAKESH MCDANIEL
== END 2019-09-29 14:56 | disposition home or self-care (01) | DRG 897 ==
LOC: ERS 06:07 → 2NO 13:45 → T4-A 09-27 11:40
PROVIDERS: ADMIT Internal Medicine; ATTEND Internal Medicine
DX: F10.231 Alcohol dependence with withdrawal delirium (principal); E87.1 Hypo-osmolality and hyponatremia; E87.2 Acidosis; Y90.3 Blood alcohol level of 60-79 mg/100 ml; K70.10 Alcoholic hepatitis without ascites; F10.221 Alcohol dependence with intoxication delirium; I10 Essential (primary) hypertension; Z91.14 Patient's other noncompliance with medication regimen; Z79.899 Other long term (current) drug therapy
CPT/HCPCS: 36415; 80053; 80306; 80307; 81003; 82010; 82140; 82330; 82550; 82803; 83690; 83735; 84100; 85025; 93005; 94760; J2060; J2405; J3411; J3475; J3480; J7042; J7050

== ENCOUNTER 2019-10-13 20:53 | Emergency (ER) | payer BC ==
[2019-10-13] MEDS ORDERED: Ondansetron ODT 4 MG TAB ONE (21:09)
[2019-10-13] MEDS ORDERED: Lorazepam 2 MG/ML VIAL ONE (21:09)
== END 2019-10-13 21:41 | disposition home or self-care (01) ==
LOC: ERS 20:53
DX: F10.129 Alcohol abuse with intoxication, unspecified (principal); I10 Essential (primary) hypertension; F17.290 Nicotine dependence, other tobacco product, uncomplicated; F41.9 Anxiety disorder, unspecified
CPT/HCPCS: 99283; J2060; Q0162

== ENCOUNTER 2019-11-27 12:04 | Emergency (ER) | payer BC ==
[2019-11-27 12:41] LABS: #Basophils 0.1 thou/uL (0.0-0.2); #Eosinphils 0.1 thou/uL (0.0-0.7); #Lymphocytes 1.5 thou/uL (1.20-3.40); #Monocytes 0.8 thou/uL (0.11-0.59); #Neutrophils 5.4 thou/uL (1.40-6.50); %Basophils 0.9 % (0.0-1.0); %Eosinophils 0.9 % (0.0-10.0); %Lymphocytes 19.2 % (21.0-51.0); %Monocytes 9.7 % (0.0-10.0); %Neutrophils 69.2 % (42.0-75.0); Hemoglobin 15.1 g/dL (14.0-18.0); Mean Corpuscular HGB CONC 33.3 g/dL (32.0-36.0); Mean Corpuscular Hemoglobin 33.3 pg (27.0-31.0); Mean Corpuscular Volume 99.9 fL (78.0-98.0); Mean Platelet Volume 6.6 fL (7.4-10.4); Platelet Count 340 thou/uL (130-400); RBC Distribution Width 13.5 % (11.5-14.5); Red Blood Cell (RBC) Count 4.54 mill/uL (4.70-6.10); White Blood Cell (WBC) Count 7.8 thou/uL (4.8-10.8)
[2019-11-27 13:17] LABS: ALT (SGPT) 32 U/L (8-55); AST (SGOT) 36 U/L (5-34); Albumin 4.8 g/dL (3.5-5.0); Alkaline Phosphatase 91 U/L (40-110); Anion Gap 15 mmol/L (10-20); BUN (Urea Nitrogen) 5 mg/dL (8.9-20.6); Bilirubin, Total 1.5 mg/dL (0.2-1.2); Calc. Creatinine Clearance 0 mL/min (70-130); Calcium 9.6 mg/dL (7.8-10.44); Carbon Dioxide 25 mmol/L (22-29); Chloride 94 mmol/L (98-107); Estimated GFR-MDRD Greater than 90; Globulin 2.4 g/dL (2.4-3.5); Glucose 117 mg/dL (70-105); Potassium 4.3 mmol/L (3.5-5.1); Protein, Total 7.2 g/dL (6.0-8.3); Sodium 130 mmol/L (136-145)
[2019-11-27 13:23] LABS: Acetaminophen Less than 6.0 mcg/mL (10.0-30.0); Alcohol 109 mg/dL (Less than 10); Salicylate Less than 8.0 mg/dL (15.0-30.0)
== END 2019-11-27 13:22 | disposition home or self-care (01) ==
LOC: ERS 12:04
DX: F10.239 Alcohol dependence with withdrawal, unspecified (principal); Y90.5 Blood alcohol level of 100-119 mg/100 ml; I10 Essential (primary) hypertension; F41.9 Anxiety disorder, unspecified; F17.290 Nicotine dependence, other tobacco product, uncomplicated; Z79.899 Other long term (current) drug therapy
CPT/HCPCS: 36415; 80053; 80307; 84443; 84484; 85025; 93005; 94760

== ENCOUNTER 2019-12-16 14:56 | Observation (INO) | payer BC ==
[2019-12-16 15:51] LABS: #Eosinphils 0.2 thou/uL (0.0-0.7); #Lymphocytes 2.3 thou/uL (1.20-3.40); #Monocytes 0.3 thou/uL (0.11-0.59); #Neutrophils 2.2 thou/uL (1.40-6.50); %Basophils 0.9 % (0.0-1.0); %Eosinophils 3.5 % (0.0-10.0); %Lymphocytes 44.8 % (21.0-51.0); %Monocytes 6.7 % (0.0-10.0); %Neutrophils 44.1 % (42.0-75.0); Hemoglobin 16.7 g/dL (14.0-18.0); Mean Corpuscular HGB CONC 34.2 g/dL (32.0-36.0); Mean Corpuscular Hemoglobin 33.6 pg (27.0-31.0); Mean Corpuscular Volume 98.2 fL (78.0-98.0); Mean Platelet Volume 6.5 fL (7.4-10.4); Platelet Count 309 thou/uL (130-400); RBC Distribution Width 12.5 % (11.5-14.5); Red Blood Cell (RBC) Count 4.97 mill/uL (4.70-6.10); White Blood Cell (WBC) Count 5.1 thou/uL (4.8-10.8)
[2019-12-16 16:14] LABS: ALT (SGPT) 37 U/L (8-55); AST (SGOT) 46 U/L (5-34); Acetaminophen Less than 6.0 mcg/mL (10.0-30.0); Albumin 4.5 g/dL (3.5-5.0); Alkaline Phosphatase 108 U/L (40-110); Anion Gap 18 mmol/L (10-20); BUN (Urea Nitrogen) 4 mg/dL (8.9-20.6); Bilirubin, Total 0.9 mg/dL (0.2-1.2); Calc. Creatinine Clearance 0 mL/min (70-130); Carbon Dioxide 24 mmol/L (22-29); Chloride 101 mmol/L (98-107); Estimated GFR-MDRD Greater than 90; Globulin 2.3 g/dL (2.4-3.5); Glucose 158 mg/dL (70-105); Lipase 63 U/L (8-78); Magnesium 2.1 mg/dL (1.6-2.6); Potassium 3.7 mmol/L (3.5-5.1); Protein, Total 6.8 g/dL (6.0-8.3); Salicylate Less than 8.0 mg/dL (15.0-30.0); Sodium 139 mmol/L (136-145)
[2019-12-16 16:22] LABS: Alcohol 434 mg/dL (Less than 10)
[2019-12-16 16:33] LABS: Amphetamine Not Detected (NotDetected); Barbiturates Screen Not Detected (NotDetected); Benzodiazepine Screen Detected (NotDetected); Cocaine Metabolite Screen Not Detected (NotDetected); Medtox Control Line Valid? VALID (VALID); Medtox Reader # READER 1; Methadone Not Detected (NotDetected); Methamphetamine Not Detected (NotDetected); Opiate Screen Not Detected (NotDetected); Oxycodone Screen Not Detected (NotDetected); Phencyclidine (PCP) Not Detected (NotDetected); THC/Cannabinoid Screen Not Detected (NotDetected); Tricyclic Screen Not Detected (NotDetected)
[2019-12-16] MEDS ORDERED: Thiamine HCl 200 MG/2 ML VIAL SLOW IVP SCH (16:45)
--- NOTE | 2019-12-16 19:41 | HP ---
HISTORY OF PRESENT ILLNESS: Mr. Mcneil is a 34-year-old male with medical history of alcohol abuse with repeated admissions for alcohol withdrawals, GERD, who presented to the ED with a complaint of palpitations. The patient has been drinking continuously about 20 bottles of beer daily and over the past week, started feeling palpitations. The patient described the palpitations as his heart beating fast and feels like it is beating out of his chest. His last alcoholic drink was this morning. He came to the ED because he is aware that these sensations precede alcohol withdrawal. On encounter, lying comfortably in bed. Complains of visual hallucinations, tremors, nausea and vomiting. Denies falls, presyncope, syncope, chest pain, shortness of breath, abdominal pain, diarrhea, hematochezia, melena, and focal weakness. ED COURSE: In the ED, the patient was found to be tachycardic and dry. He was supplemented with fluids and was admitted to the medical floor for continued management. REVIEW OF SYSTEMS: Complete review of system was carried out and was negative with the exception of that mentioned in the HPI. PAST MEDICAL HISTORY: GERD, alcohol abuse, and alcohol withdrawal (the patient denies seizures or delirium tremens). PAST SURGICAL HISTORY: No surgical history. FAMILY HISTORY: Hypertension. SOCIAL HISTORY: Never smoker. Alcohol, heavy drinker about 20 bottles of beer daily. Recreational drugs, no recreational drugs. Lives alone and ambulates independently. MEDICATIONS: The patient is on no medications at home. ALLERGIES: NO KNOWN DRUG ALLERGIES. PHYSICAL EXAMINATION: VITAL SIGNS: On admission, the patient had a blood pressure of 108/80, pulse 148, respiratory rate 20, temperature 99.2 Fahrenheit, and oxygen saturation 96% on room air. GENERAL APPEARANCE: No apparent distress. Awake and alert. EYE: PERRL. Anicteric sclerae. ENT: Normocephalic and atraumatic. Dry oral mucosa. NECK: No JVD. HEART: Regular rate and rhythm, tachycardic, 2/6 decrescendo systolic second intercostal murmur. RESPIRATORY: Clear to auscultation bilaterally. No wheezing, rales, or rhonchi. No tachypnea. GI: Soft, nontender, and nondistended. Normal bowel sounds. No appreciated hepatomegaly. NEUROLOGIC: Cranial nerves grossly intact. Normal sensation to touch. No weakness. No focal deficits or new deficits. Significant tremor in both hands when outstretched. MUSCULOSKELETAL: Normal tone and strength. PSYCHIATRIC: Alert and oriented x3. DIAGNOSTIC STUDIES: Imaging and labs were reviewed. Of note, the patient had mild elevation in AST, likely it was normal. Urine drug screen was unremarkable with the exception of benzodiazepines and alcohol level in the plasma was 434. EKG showed sinus tachycardia with old anteroseptal defect. ASSESSMENT AND PLAN: Alcohol abuse 1. The patient has recurrent admissions for alcohol abuse and withdrawals. 2. Liver function based on albumin synthesis is normal, also AST only mildly elevated. 3. On encounter, the patient's CARLOTA score was greater than 7. PLAN 1. Banana bag. 2. Librium 10 mg t.i.d. scheduled. 3. Ativan 2 mg p.o. q.4 hours for an CARLOTA of above 7 if Librium insufficient. Gastroesophageal reflux disease: 1. We will start the patient on pantoprazole. Disposition prophylaxis: Full code per patient. Has no surrogate decision maker. 1. Gastrointestinal prophylaxis, on therapeutic pantoprazole. 2. Deep venous thrombosis prophylaxis, Lovenox. Job ID: [id number]
[2019-12-16] MEDS ORDERED: Acetaminophen 325 MG TAB PO PRN (20:00)
[2019-12-16] MEDS ORDERED: Ondansetron ODT 4 MG TAB PO PRN (21:15)
[2019-12-16] MEDS ORDERED: Lorazepam 1 MG TAB PO PRN (21:15)
[2019-12-16 21:39] VITALS: BMI 23.3
[2019-12-16] MEDS: Multivitamins, Adult 10 ML, Folic Acid 1 MG, Thiamine HCl 100 MG in Dextrose 5 %-0.45 %... IV SCH (22:21)
[2019-12-17] MEDS: Ondansetron PF 4 MG/2 ML Vial IVP PRN ×2 (04:51→10:32)
[2019-12-17 06:59] LABS: Anion Gap 16 mmol/L (10-20); BUN (Urea Nitrogen) 5 mg/dL (8.9-20.6); Calc. Creatinine Clearance 127 mL/min (70-130); Calcium 8.5 mg/dL (7.8-10.44); Carbon Dioxide 27 mmol/L (22-29); Chloride 103 mmol/L (98-107); Estimated GFR-MDRD Greater than 90; Glucose 105 mg/dL (70-105); Potassium 3.9 mmol/L (3.5-5.1); Sodium 142 mmol/L (136-145)
[2019-12-17] MEDS: Enoxaparin Sodium 30 MG/0.3 ML SYRINGE SC SCH (08:42)
--- NOTE | 2019-12-17 12:28 | PDOC.HOSPP ---
- Subjective Encounter Date: 12/17/19 Encounter Time: 10:00 Subjective: no overnight events. this morning, feeling about the same. no PRN ativan used. - Objective Vital Signs & Weight: Vital Signs (12 hours) Temp Pulse Resp BP BP Pulse Ox 12/17/19 11:00 98.5 F 109 H 20 128/79 98 12/17/19 08:00 104 H 134/95 H 12/17/19 07:24 98.2 F 111 H 20 134/98 H 95 12/17/19 05:00 97.8 F 12/17/19 04:09 105 H 17 122/81 98 12/17/19 04:00 122/81 Weight Weight 140 lb 6.951 oz I&O: 12/16/19 12/17/19 12/18/19 06:59 06:59 06:59 Intake Total 1574 Output Total 1960 Balance -386 Result Diagrams: 12/16/19 15:34 12/17/19 05:53 Hospitalist ROS - Review of Systems Constitutional: reports: weakness. denies: fever, chills, sweats, malaise, other Respiratory: denies: cough, dry, shortness of breath, hemoptysis, SOB with excertion, pleuritic pain, sputum, wheezing, other Cardiovascular: denies: chest pain, palpitations, orthopnea, paroxysmal noc. dyspnea, edema, light headedness, other Gastrointestinal: reports: nausea, vomiting. denies: abdominal pain, diarrhea, constipation, melena, hematochezia, other Genitourinary: denies: dysuria, frequency, incontinence, hematuria, retention, other Neurological: reports: weakness, incoordination, change in speech - Medication Medications: Active Medications Generic Name Dose Route Start Last Admin Trade Name Freq PRN Reason Stop Dose Admin Chlordiazepoxide HCl 10 mg 12/16/19 21:00 12/17/19 08:42 Librium PO 10 mg TID GINI Administration Enoxaparin Sodium 30 mg 12/17/19 09:00 12/17/19 08:42 Lovenox SC 30 mg 0900 GINI Administration Multivitamins 10 ml/ Folic 1,011.2 mls @ 100 mls/hr 12/16/19 22:00 12/16/19 22:21 Acid 1 mg/ Thiamine HCl 100 mg IV 1,011.2 mls / Dextrose/Sodium Chloride Q24HR GINI Administration Ondansetron HCl 4 mg 12/16/19 21:15 12/17/19 10:32 Zofran IVP 4 mg Q6H PRN Administration Nausea/Vomiting - Exam General Appearance: NAD, awake alert Eye: PERRL Neck: no JVD Heart: no murmur, no gallops, no rubs Heart - other findings: tachycardic Respiratory: CTAB, no wheezes, no rales, no ronchi Gastrointestinal: soft, non-tender, non-distended, normal bowel sounds Extremities: no edema Extremities - other findings: tremors improved Neurological - other findings: broken speech Psychiatric: normal affect, normal behavior, A&O x 3 Psychiatric - other findings: no additional visual hallucinations Hosp A/P - Plan #alcohol withdrawal -continue librium scheduled, ativan PRN -monitor for 48hrs, if no worsening symptoms can be dced #GERD -continue pantoprazole ELOS: 1 night
[2019-12-17] MEDS: Multivitamins, Adult 10 ML, Folic Acid 1 MG, Thiamine HCl 100 MG in Dextrose 5 %-0.45 %... IV SCH (20:53)
[2019-12-18 07:44] VITALS: TEMP 98
[2019-12-18] MEDS: Ondansetron PF 4 MG/2 ML Vial IVP PRN (08:50)
[2019-12-18] MEDS: Enoxaparin Sodium 30 MG/0.3 ML SYRINGE SC SCH (08:50)
[2019-12-18 12:40] VITALS: BP 128/89
--- NOTE | 2019-12-19 02:25 | DIS ---
DATE OF ADMISSION: 12/16/2019 DATE OF DISCHARGE: 12/18/2019 HOSPITAL COURSE: Mr. Mcneil is a 34-year-old male with medical history of recurrent alcohol withdrawal syndromes, GERD, who presented with alcohol withdrawal. The patient had multiple such presentation since the beginning of the year, and each time he was provided resources for seeking help for acute substance abuse. He was treated with scheduled Librium low dose and p.r.n. Ativan, but did not require supplemental Ativan. He was followed for 48 hours and his alcohol withdrawal symptoms improved. He was discharged home hemodynamically stable with no complaints. Of note, the patient exhibited drug-seeking behavior prior to discharge. cage manager was involved and provided the patient with additional resources to seek aid. PHYSICAL EXAMINATION: VITAL SIGNS: Blood pressure 138/99, temperature 98, pulse 88, respiratory rate 18, oxygen saturation 98% on room air. GENERAL: Lying comfortably in bed. No apparent distress. EYES: PERRL. NECK: No JVD. HEART: No murmurs, gallops, or rubs. Regular rate and rhythm. LUNGS: Clear to auscultation bilaterally. No wheezing, rales, or rhonchi. GI: Soft, nontender, nondistended. Normal bowel sounds. EXTREMITIES: No edema. Mild tremors, which are much improved compared to the day of admission. NEUROLOGIC: Speech much improved compared to presentation and is less broken. PSYCHIATRIC: Proper mood and affect. Alert and oriented x3, exhibiting drug-seeking behavior. MEDICATION LIST: New medications: No new medications. Modified medications: No modified medications. Continued medications: Omeprazole. Job ID: [id number]
== END 2019-12-18 12:30 | disposition home or self-care (01) ==
LOC: ERS 14:56 → T4-A 17:26
PROVIDERS: ADMIT Internal Medicine; ATTEND Internal Medicine
DX: F10.230 Alcohol dependence with withdrawal, uncomplicated (principal); E86.0 Dehydration; K21.9 Gastro-esophageal reflux disease without esophagitis; F17.290 Nicotine dependence, other tobacco product, uncomplicated; Z79.899 Other long term (current) drug therapy; Y90.8 Blood alcohol level of 240 mg/100 ml or more
CPT/HCPCS: 36415; 80048; 80053; 80306; 80307; 82550; 83690; 83735; 85025; 93005; 94760; 96365; 96366; 96372; 96374; 96375; 96376; G0378; J1650; J2405; J3411; J7042

== ENCOUNTER 2020-11-08 14:21 | Inpatient (IN) | payer OTHER, SELFPAY ==
[~2020-11-08 14:21] MED LIST: Iopamidol-370 76% 500 ML 1 ML ONE
[2020-11-08 15:03] LABS: #Basophils 0.1 thou/uL (0.0-0.2); #Lymphocytes 2.1 thou/uL (1.20-3.40); #Monocytes 0.9 thou/uL (0.11-0.59); #Neutrophils 3.8 thou/uL (1.40-6.50); %Basophils 0.9 % (0.0-1.0); %Eosinophils 0.7 % (0.0-10.0); %Lymphocytes 30.6 % (21.0-51.0); %Monocytes 12.5 % (0.0-10.0); %Neutrophils 55.3 % (42.0-75.0); Hemoglobin 15.9 g/dL (14.0-18.0); Mean Corpuscular HGB CONC 34.1 g/dL (32.0-36.0); Mean Corpuscular Hemoglobin 31.5 pg (27.0-31.0); Mean Corpuscular Volume 92.5 fL (78.0-98.0); Mean Platelet Volume 6.3 fL (7.4-10.4); Platelet Count 351 thou/uL (130-400); RBC Distribution Width 12.9 % (11.5-14.5); Red Blood Cell (RBC) Count 5.04 mill/uL (4.70-6.10); White Blood Cell (WBC) Count 6.8 thou/uL (4.8-10.8)
[2020-11-08 15:15] LABS: Acetaminophen Less than 6.0 mcg/mL (10.0-30.0); Alcohol 270 mg/dL (Less than 10); Salicylate Less than 8.0 mg/dL (15.0-30.0)
[2020-11-08 15:21] LABS: ALT (SGPT) 34 U/L (8-55); AST (SGOT) 42 U/L (5-34); Albumin 4.8 g/dL (3.5-5.0); Alkaline Phosphatase 132 U/L (40-110); Anion Gap 22 mmol/L (10-20); BUN (Urea Nitrogen) 9 mg/dL (8.9-20.6); Bilirubin, Total 2.8 mg/dL (0.2-1.2); Calc. Creatinine Clearance 0 mL/min (70-130); Calcium 9.7 mg/dL (7.8-10.44); Carbon Dioxide 23 mmol/L (22-29); Chloride 86 mmol/L (98-107); Globulin 2.5 g/dL (2.4-3.5); Glucose 123 mg/dL (70-105); Lipase 107 U/L (8-78); Potassium 4.5 mmol/L (3.5-5.1); Protein, Total 7.3 g/dL (6.0-8.3); Sodium 126 mmol/L (136-145)
[2020-11-08] MEDS ORDERED: Lorazepam 2 MG/ML VIAL ONE ×2 (15:51→17:37)
[2020-11-08] MEDS ORDERED: Ondansetron PF 4 MG/2 ML Vial ONE (15:51)
[2020-11-08] MEDS ORDERED: Pantoprazole 40 MG VIAL ONE (15:51)
[2020-11-08] MEDS ORDERED: Thiamine HCl 200 MG/2 ML VIAL SLOW IVP SCH (16:15)
[2020-11-08] MEDS ORDERED: Folic Acid 1 MG TAB ONE (16:19)
[2020-11-08 16:27] LABS: Amphetamine Not Detected (NotDetected); Barbiturates Screen Not Detected (NotDetected); Benzodiazepine Screen Not Detected (NotDetected); Cocaine Metabolite Screen Not Detected (NotDetected); Medtox Control Line Valid? VALID (VALID); Medtox Reader # READER 1; Methadone Not Detected (NotDetected); Methamphetamine Not Detected (NotDetected); Opiate Screen Not Detected (NotDetected); Oxycodone Screen Not Detected (NotDetected); Phencyclidine (PCP) Not Detected (NotDetected); THC/Cannabinoid Screen Not Detected (NotDetected); Tricyclic Screen Not Detected (NotDetected)
[2020-11-08] MEDS ORDERED: Acetaminophen 325 MG TAB PO PRN (17:53)
[2020-11-08] MEDS ORDERED: Ondansetron PF 4 MG/2 ML Vial IVP PRN (17:53)
[2020-11-08] MEDS ORDERED: HYDROcodone/Acetaminophen 5/325 mg Tablet PO PRN (17:53)
[2020-11-08] MEDS ORDERED: Diazepam 5 MG TAB PO PRN (17:56)
[2020-11-08] MEDS ORDERED: Diazepam 5 MG TAB PO SCH (18:00)
[2020-11-08] MEDS ORDERED: Thiamine HCl 200 MG/2 ML VIAL IM SCH (18:00)
[2020-11-08] MEDS ORDERED: Ketorolac Tromethamine 30 MG/ML VIAL IVP PRN (18:27)
[2020-11-08 21:07] VITALS: BMI 26.6
[2020-11-08] MEDS: Famotidine/PF 20 mg/2ml Vial SLOW IVP SCH (21:38)
[2020-11-08] MEDS: Metoprolol Tartrate 25 MG TAB PO SCH (21:39)
[2020-11-08] MEDS: Sodium Chloride 0.9% 1,000 ML IV SCH (21:41)
[2020-11-09] MEDS: Sodium Chloride 0.9% 1,000 ML IV SCH ×2 (03:45→20:03)
[2020-11-09 04:58] LABS: #Basophils 0.1 thou/uL (0.0-0.2); #Eosinphils 0.1 thou/uL (0.0-0.7); #Lymphocytes 1.7 thou/uL (1.20-3.40); #Monocytes 0.6 thou/uL (0.11-0.59); #Neutrophils 2.4 thou/uL (1.40-6.50); %Basophils 1.7 % (0.0-1.0); %Eosinophils 1.6 % (0.0-10.0); %Lymphocytes 34.6 % (21.0-51.0); %Monocytes 12.5 % (0.0-10.0); %Neutrophils 49.6 % (42.0-75.0); Hemoglobin 13.9 g/dL (14.0-18.0); Mean Corpuscular HGB CONC 33.2 g/dL (32.0-36.0); Mean Corpuscular Hemoglobin 31.3 pg (27.0-31.0); Mean Corpuscular Volume 94.1 fL (78.0-98.0); Mean Platelet Volume 6.6 fL (7.4-10.4); Platelet Count 311 thou/uL (130-400); Red Blood Cell (RBC) Count 4.46 mill/uL (4.70-6.10); White Blood Cell (WBC) Count 4.9 thou/uL (4.8-10.8)
[2020-11-09 06:12] LABS: ALT (SGPT) 30 U/L (8-55); AST (SGOT) 37 U/L (5-34); Albumin 3.9 g/dL (3.5-5.0); Alkaline Phosphatase 113 U/L (40-110); Anion Gap 15 mmol/L (10-20); BUN (Urea Nitrogen) 9 mg/dL (8.9-20.6); Bilirubin, Total 2.1 mg/dL (0.2-1.2); Calc. Creatinine Clearance 108 mL/min (70-130); Calcium 8.8 mg/dL (7.8-10.44); Carbon Dioxide 23 mmol/L (22-29); Chloride 101 mmol/L (98-107); Globulin 2.3 g/dL (2.4-3.5); Glucose 85 mg/dL (70-105); Potassium 4.3 mmol/L (3.5-5.1); Protein, Total 6.2 g/dL (6.0-8.3); Sodium 135 mmol/L (136-145)
[2020-11-09] MEDS: Folic Acid 1 MG TAB PO SCH (08:33)
[2020-11-09] MEDS: Magnesium Oxide 400 MG TAB PO SCH (08:33)
[2020-11-09] MEDS: Famotidine/PF 20 mg/2ml Vial SLOW IVP SCH (08:33)
[2020-11-09] MEDS: Diazepam 5 MG TAB PO PRN ×3 (08:33→16:54)
[2020-11-09] MEDS: Metoprolol Tartrate 25 MG TAB PO SCH ×2 (08:33→21:05)
[2020-11-09] MEDS: Multivitamin W/ Minerals 1 TAB PO SCH (08:33)
[2020-11-09] MEDS: Thiamine 100 MG TAB PO SCH (08:33)
[2020-11-09 09:26] LABS: SARS-CoV-2 PCR by NAA Not Detected (NotDetected)
[2020-11-09] MEDS: Pantoprazole 40 MG VIAL IVP SCH ×2 (12:19→21:06)
[2020-11-10] MEDS: Metoprolol Tartrate 25 MG TAB PO SCH (06:08)
[2020-11-10] MEDS: Sodium Chloride 0.9% 1,000 ML IV SCH (06:25)
[2020-11-10] MEDS ORDERED: Fentanyl 100 MCG/2 ML VIAL ONE (08:41)
[2020-11-10] MEDS ORDERED: PROPOFOL 200 MG/20 ML VIAL ONE (09:02)
[2020-11-10] MEDS ORDERED: Ondansetron HCl/PF 4 MG/2 ML Vial IVP PRN (09:12)
[2020-11-10] MEDS ORDERED: Promethazine HCl 25 MG/ML VIAL IM PRN (09:12)
[2020-11-10] MEDS ORDERED: Promethazine HCl 25 MG/ML VIAL SLOW IVP PRN (09:12)
[2020-11-10] MEDS: Magnesium Oxide 400 MG TAB PO SCH (11:26)
[2020-11-10] MEDS: Folic Acid 1 MG TAB PO SCH (11:26)
[2020-11-10] MEDS: Thiamine 100 MG TAB PO SCH (11:26)
[2020-11-10] MEDS: Multivitamin W/ Minerals 1 TAB PO SCH (11:26)
[2020-11-10 11:41] VITALS: BP 153/90; TEMP 98.1
[2020-11-10] MEDS: Pantoprazole 40 MG VIAL IVP SCH (12:21)
== END 2020-11-10 14:20 | disposition home or self-care (01) | DRG 369 ==
LOC: ERS 14:21 → 2NO 17:13
PROVIDERS: ADMIT Internal Medicine; ATTEND Hospitalist
PROC: HZ2ZZZZ Detoxification Services for Substance Abuse Treatment (ICD-10-PCS; 2020-11-08)
PROC: 0DJ08ZZ Inspection of Upper Intestinal Tract, Via Natural or Artificial Opening Endoscopic (ICD-10-PCS; principal; 2020-11-10)
DX: K21.01 Gastro-esophageal reflux disease with esophagitis, with bleeding (principal); F10.239 Alcohol dependence with withdrawal, unspecified; E87.1 Hypo-osmolality and hyponatremia; K74.60 Unspecified cirrhosis of liver; I10 Essential (primary) hypertension; Z20.822 Contact with and (suspected) exposure to COVID-19; R79.89 Other specified abnormal findings of blood chemistry; K70.10 Alcoholic hepatitis without ascites; D64.9 Anemia, unspecified; Z79.899 Other long term (current) drug therapy
CPT/HCPCS: 36415; 71045; 74177; 80053; 80306; 80307; 82274; 83690; 83735; 84484; 85025; 87635; 93005; 96374; 96375; 96376; C9113; J2060; J2405; J2704; J3010; J3411; J3475; J3490; Q9967; S0028; U0003; U0005

== ENCOUNTER 2023-02-18 12:24 | Emergency (ER) | payer BC, OTHER, SELFPAY ==
[~2023-02-18 12:24] MED LIST changes: -Iopamidol-370 76% 500 ML 1 ML ONE; +Iopamidol-370 76% 500 ML MDV (1 ML CHARGE) ONE
[2023-02-18 12:43] LABS: #Basophils 0.1 thou/uL (0.0-0.2); #Eosinphils 0.2 thou/uL (0.0-0.7); #Monocytes 0.9 thou/uL (0.11-0.59); #Neutrophils 9.4 thou/uL (1.40-6.50); %Basophils 0.6 % (0.0-1.0); %Eosinophils 1.3 % (0.0-10.0); %Lymphocytes 24.8 % (21.0-51.0); %Monocytes 6.2 % (0.0-10.0); %Neutrophils 66.3 % (42.0-75.0); Hematocrit 45.9 % (42.0-52.0); Hemoglobin 16.1 g/dL (14.0-18.0); Mean Corpuscular HGB CONC 35.1 g/dL (32.0-36.0); Mean Corpuscular Hemoglobin 32.2 pg (27.0-31.0); Mean Corpuscular Volume 91.8 fl (78.0-98.0); Mean Platelet Volume 8.8 fL (7.4-10.4); Platelet Count 271 10x3/uL (130-400); RBC Distribution Width 12.6 % (11.5-14.5); White Blood Cell (WBC) Count 14.3 10x3/uL (4.8-10.8)
[2023-02-18 13:12] LABS: ALT (SGPT) 40 U/L (8-55); AST (SGOT) 30 U/L (5-34); Albumin 3.9 g/dL (3.5-5.0); Alkaline Phosphatase 82 U/L (40-110); Anion Gap 12 mmol/L (10-20); BUN (Urea Nitrogen) 7 mg/dL (8.9-20.6); Bilirubin, Total 0.3 mg/dL (0.2-1.2); CK (CPK) 105 U/L (30-200); Calc. Creatinine Clearance 0 mL/min (70-130); Calcium 9.2 mg/dL (7.8-10.44); Carbon Dioxide 24 mmol/L (22-29); Chloride 103 mmol/L (98-107); Estimated GFR 116; Glucose 129 mg/dL (70-105); Potassium 3.4 mmol/L (3.5-5.1); Protein, Total 5.9 g/dL (6.0-8.3); Sodium 136 mmol/L (136-145)
[2023-02-18 13:33] LABS: Prothrombin Time 13.7 sec (12.0-14.7)
[2023-02-18 13:48] LABS: PTT 21.5 sec (22.9-36.1)
[2023-02-18 13:55] LABS: Troponin I Less than 0.010 ng/mL (< 0.028)
== END 2023-02-18 15:57 | disposition home or self-care (01) ==
LOC: ERS 12:24
DX: R55 Syncope and collapse (principal); I10 Essential (primary) hypertension; F17.210 Nicotine dependence, cigarettes, uncomplicated
CPT/HCPCS: 70450; 70496; 70498; 71045; 80053; 82550; 84484; 85025; 85610; 85730; 93005; 96360; 96361; Q9967